=== PATIENT | female | born 1950 | race Caucasian/White ===

== ENCOUNTER 2020-06-11 06:31 | Inpatient (IN) ==
[~2020-06-11 06:31] MED LIST: LORazepam 2 MG/4 ML VIAL ONE
[2020-06-11] MEDS ORDERED: PROPOFOL IV EMULSION 10 MG/ML 100 ML VIAL IV ONE ×2 (06:44→10:49)
[2020-06-11] MEDS ORDERED: SODIUM BICARB 8.4% INJ 50 MEQ/50 ML SYR IV STA (06:47)
[2020-06-11] MEDS ORDERED: CALCIUM GLUCONATE 10% 1,000 MG in SODIUM CHLORIDE 0.9% 50 ML IV STA (06:47)
[2020-06-11] MEDS ORDERED: LORazepam 2 MG/ML VIAL (IM USE) ONE (06:48)
[2020-06-11] MEDS ORDERED: VANCOMYCIN CONSULT ACTIVE PRN ×2 (06:49)
[2020-06-11] MEDS ORDERED: VANCOMYCIN HCL 2,250 MG in SODIUM CHLORIDE 0.9% 500 ML IV ONE (06:49)
[2020-06-11] MEDS ORDERED: CEFEPIME 2,000 MG/20 ML VIAL IV STA (06:49)
[2020-06-11] MEDS ORDERED: SODIUM CHLORIDE 0.9% 1000ML 1,000 ML IV ONE (06:52)
[2020-06-11 06:59] LABS: iSTAT Creatinine 1.5 mg/dl (0.6-1.3); iSTAT Hemoglobin 11.2 g/dl (12.0-16.0); iSTAT Ionized Calcium 0.98 mmol/l (1.12-1.32); iSTAT Potassium 8.8 mmol/L (3.3-5.0)
[2020-06-11 07:04] LABS: iSTAT Creatinine 1.5 mg/dl (0.6-1.3); iSTAT Hemoglobin 13.3 g/dl (12.0-16.0); iSTAT Potassium 4.7 mmol/L (3.3-5.0)
[2020-06-11] MEDS ORDERED: MEROPENEM 500 MG in SYRINGE 0 ML IV STA (07:07)
[2020-06-11 07:10] LABS: iSTAT Arterial Blood Gas HCO3 15 meg/L (19-24); iSTAT Arterial Blood Gas pCO2 40 mmHg (35-46); iSTAT Arterial Blood Gas pH 7.17 (7.35-7.45); iSTAT Arterial Blood Gas pO2 197 mmHg (80-95); iSTAT Carbon Dioxide 16 mmol/L (24-31); iSTAT Hematocrit 38 % (37-47); iSTAT Hemoglobin 12.9 g/dl (12.0-16.0); iSTAT Potassium 4.3 mmol/L (3.3-5.0); iSTAT Sodium 144 mmol/L (135-144)
--- NOTE | 2020-06-11 07:10 | Emergency Department Note ---
History of Present Illness General Chief complaint: Cardiac Assessment Stated complaint: SEIZURE Time Seen by Provider: 06/11/20 06:51 Source: EMS Mode of arrival: EMS Limitations: altered mental status History of Present Illness This patient was brought in by EMS after having a seizure and she was noted to be in V. tach as well. They had a difficult time getting access on route but did manage to get an IV in her right arm. She was apparently shocked once. Upon arrival she went into V. tach and became unresponsive she was shocked she did receive several doses of epi and CPR was started. She was also loaded with amiodarone. She is unable to give any history. Apparently she has an ESBL and was admitted for a UTI also has liver failure. Home Medications Medication Instructions Recorded Confirmed Type Bifidobacterium infantis [Align] 4 mg PO DAILY 06/11/20 06/11/20 History albuterol sulfate 2 puff INHALATION QID PRN 06/11/20 06/11/20 History ascorbic acid (vitamin C) 500 mg PO BID 06/11/20 06/11/20 History benztropine 0.5 mg PO BID 06/11/20 06/11/20 History cariprazine [Vraylar] 3 mg PO QAM 06/11/20 06/11/20 History cetirizine 10 mg PO DAILY 06/11/20 06/11/20 History cholecalciferol (vitamin D3) 25 mcg PO QAM 06/11/20 06/11/20 History [Vitamin D3] citalopram 40 mg PO QAM 06/11/20 06/11/20 History docusate sodium 100 mg PO BID 06/11/20 06/11/20 History famotidine 20 mg PO QAM 06/11/20 06/11/20 History ferrous sulfate 325 mg PO BID 06/11/20 06/11/20 History lactulose 45 ml PO TID 06/11/20 06/11/20 History lamotrigine 150 mg PO BID 06/11/20 06/11/20 History melatonin 3 mg PO HS 06/11/20 06/11/20 History montelukast 10 mg PO QPM 06/11/20 06/11/20 History hwyhkrzr-xck-rqdw-FA-lutein 1 tab PO QAM 06/11/20 06/11/20 History [Centrum Silver Women] nystatin 100,000 unit PO PCHS 06/11/20 06/11/20 History ondansetron 4 mg PO Q6H PRN 06/11/20 06/11/20 History pantoprazole 40 mg PO QAM 06/11/20 06/11/20 History potassium chloride 20 meq PO TID 06/11/20 06/11/20 History rifaximin [Xifaxan] 550 mg PO BID 06/11/20 06/11/20 History selenium 200 mcg PO DAILY 06/11/20 06/11/20 History spironolactone 50 mg PO QAM 06/11/20 06/11/20 History vancomycin 125 mg PO Q6H 06/11/20 06/11/20 History vitamin B complex 1 tab PO DAILY 06/11/20 06/11/20 History zinc sulfate 220 mg PO QAM 06/11/20 06/11/20 History Allergies Allergy/AdvReac Type Severity Reaction Status Date / Time acetaminophen Allergy Hallucinati Verified 06/11/20 07:14 [From Darvocet-N] ng aripiprazole Allergy Unknown Verified 06/11/20 07:12 celecoxib [From Celebrex] Allergy Rash Verified 06/11/20 07:12 ciprofloxacin [From Cipro] Allergy Hives Verified 06/11/20 07:16 clarithromycin [From Biaxin] Allergy Swelling Verified 06/11/20 07:12 of Lip/Tongue/Throat cyclobenzaprine Allergy Muscle Pain Verified 06/11/20 07:16 [From Flexeril] gabapentin Allergy Unknown Verified 06/11/20 07:16 Iodinated Contrast Media Allergy Anaphylaxis Verified 06/11/20 07:14 metaxalone [From Skelaxin] Allergy Difficulty Verified 06/11/20 07:12 Breathing morphine Allergy Hives Verified 06/11/20 07:16 nitrofurantoin Allergy Gastrointestinal Verified 06/11/20 07:16 Upset NSAIDS (Non-Steroidal Allergy Difficulty Verified 06/11/20 07:12 Anti-Inflamma Breathing Penicillins Allergy Anaphylaxis Verified 06/11/20 07:12 propoxyphene Allergy Hallucinati Verified 06/11/20 07:14 [From Darvocet-N] ng shellfish derived Allergy Anaphylaxis Verified 06/11/20 07:12 tetanus immune globulin Allergy Difficulty Verified 06/11/20 07:19 Breathing pregabalin AdvReac Unknown Verified 06/11/20 07:19 Past Med/Surg History Medical History Anemia Bipolar disorder Chronic hepatitis C with cirrhosis Chronic pain syndrome CKD (chronic kidney disease) stage 3, GFR 30-59 ml/min GERD (gastroesophageal reflux disease) History of ESBL Klebsiella pneumoniae infection HTN (hypertension) Portal hypertension T2DM (type 2 diabetes mellitus) Vulvar cancer, carcinoma Surgical History History of bronchoscopy History of cholecystectomy History of hysterectomy Family History Father Bipolar disorder Parkinson disease Mother COPD (chronic obstructive pulmonary disease) Heart disease Social History (Updated 06/11/20 @ 09:57 by Christin Plaaz PA-C) Smoking Status: Unknown if ever smoked Years Smoked: 30; Cigarettes Per Day: 5; Preferred Language: Greek Communication Ability: Unable Communication Ability Comment: intubated [employer] Required: No Beliefs That Will Affect Care: None marital status: Current Living Situation: Other Current Living Situation Comment: unable to obtain Immunizations: Past medical historyESBL, hepatitis C, it looks like she did have a seizure and an MRI when she was in [place] recently. End-stage liver disease Review of Systems Unobtainable due to mental health condition and Unobtainable due to reduced consciousness Physical Exam Vital Signs Vital Signs - 24 hr 06/11/20 06:33 06/11/20 06:47 06/11/20 06:49 Temperature Temperature Source Pulse Rate 142 H 47 L 47 L Pulse Rate [Apical] Pulse Rate from SpO2 Sensor 47 L Pulse Rhythm Irregular Pulse Rhythm [Apical] Pulse Strength [Apical] Respiratory Rate 0 L 37 H 15 Respiratory Effort / Characteristics Respiratory Depth Respiratory Pattern Blood Pressure 96/37 L Blood Pressure [Right Arm] Blood Pressure Mean 51 Blood Pressure Mean [Right Arm] Blood Pressure Position [Right Arm] Pulse Oximetry 52 L 99 98 Oxygen Delivery Method Fraction of Inspired Oxygen 40 SaO2/FiO2 Ratio Sepsis Recent Fever Within 48 Hours No Sepsis New/Unexplained Change in Mental Status Yes Sepsis Action Taken by Nursing No Action Required End-Tidal CO2 End Tidal CO2 (18-54mmHg) 06/11/20 06:50 06/11/20 06:55 06/11/20 07:00 Temperature Temperature Source Pulse Rate 53 L 54 L Pulse Rate [Apical] 65 58 L Pulse Rate from SpO2 Sensor 51 L 49 L Pulse Rhythm Pulse Rhythm [Apical] Regular Regular Pulse Strength [Apical] Normal Normal Respiratory Rate 24 23 26 H Respiratory Effort / Characteristics Non-Labored Mechanically Ventilated Non-Labored Mechanically Ventilated Respiratory Depth Normal Normal Respiratory Pattern Regular Regular Blood Pressure 124/64 139/53 L Blood Pressure [Right Arm] 124/64 140/54 L Blood Pressure Mean 90 83 Blood Pressure Mean [Right Arm] 84 82 Blood Pressure Position [Right Arm] Lying Lying Pulse Oximetry 97 95 95 Oxygen Delivery Method Mechanical Vent Mechanical Vent Fraction of Inspired Oxygen 30 30 SaO2/FiO2 Ratio 323 316 Sepsis Recent Fever Within 48 Hours Sepsis New/Unexplained Change in Mental Status Sepsis Action Taken by Nursing End-Tidal CO2 End Tidal CO2 (18-54mmHg) 27 24 06/11/20 07:10 06/11/20 07:21 06/11/20 07:23 Temperature Temperature Source Pulse Rate 110 H Pulse Rate [Apical] 71 111 H Pulse Rate from SpO2 Sensor Pulse Rhythm Pulse Rhythm [Apical] Regular Regular Pulse Strength [Apical] Normal Normal Respiratory Rate 26 H 32 H Respiratory Effort / Characteristics Non-Labored Mechanically Ventilated Non-Labored Mechanically Ventilated Respiratory Depth Normal Normal Respiratory Pattern Regular Regular Blood Pressure Blood Pressure [Right Arm] 150/80 H 163/72 H Blood Pressure Mean Blood Pressure Mean [Right Arm] 103 102 Blood Pressure Position [Right Arm] Lying Lying Pulse Oximetry 96 96 95 Oxygen Delivery Method Mechanical Vent Mechanical Vent Fraction of Inspired Oxygen 30 30 30 SaO2/FiO2 Ratio 320 320 Sepsis Recent Fever Within 48 Hours Sepsis New/Unexplained Change in Mental Status Sepsis Action Taken by Nursing End-Tidal CO2 35 End Tidal CO2 (18-54mmHg) 26 25 06/11/20 07:30 06/11/20 08:00 06/11/20 08:10 Temperature Temperature Source Pulse Rate Pulse Rate [Apical] 110 H 85 95 H Pulse Rate from SpO2 Sensor Pulse Rhythm Pulse Rhythm [Apical] Regular Regular Regular Pulse Strength [Apical] Normal Normal Normal Respiratory Rate 34 H 28 H 30 H Respiratory Effort / Characteristics Non-Labored Mechanically Ventilated Non-Labored Mechanically Ventilated Non-Labored Mechanically Ventilated Respiratory Depth Normal Normal Normal Respiratory Pattern Regular Regular Regular Blood Pressure Blood Pressure [Right Arm] 154/76 H 110/57 L 135/58 L Blood Pressure Mean Blood Pressure Mean [Right Arm] 102 74 83 Blood Pressure Position [Right Arm] Lying Lying Lying Pulse Oximetry 95 93 93 Oxygen Delivery Method Mechanical Vent Mechanical Vent Mechanical Vent Fraction of Inspired Oxygen 30 30 30 SaO2/FiO2 Ratio 316 310 310 Sepsis Recent Fever Within 48 Hours Sepsis New/Unexplained Change in Mental Status Sepsis Action Taken by Nursing End-Tidal CO2 End Tidal CO2 (18-54mmHg) 26 26 25 06/11/20 08:11 06/11/20 08:20 06/11/20 08:30 Temperature 38.4 C H Temperature Source Rectal Pulse Rate Pulse Rate [Apical] 93 H 91 H Pulse Rate from SpO2 Sensor Pulse Rhythm Pulse Rhythm [Apical] Regular Regular Pulse Strength [Apical] Normal Normal Respiratory Rate 30 H 30 H Respiratory Effort / Characteristics Non-Labored Mechanically Ventilated Non-Labored Mechanically Ventilated Respiratory Depth Normal Normal Respiratory Pattern Regular Regular Blood Pressure Blood Pressure [Right Arm] 124/60 130/56 L Blood Pressure Mean Blood Pressure Mean [Right Arm] 81 80 Blood Pressure Position [Right Arm] Lying Lying Pulse Oximetry 92 93 Oxygen Delivery Method Mechanical Vent Mechanical Vent Fraction of Inspired Oxygen 30 30 SaO2/FiO2 Ratio 306 310 Sepsis Recent Fever Within 48 Hours Sepsis New/Unexplained Change in Mental Status Sepsis Action Taken by Nursing End-Tidal CO2 End Tidal CO2 (18-54mmHg) 27 28 06/11/20 08:40 06/11/20 08:50 06/11/20 09:10 Temperature Temperature Source Pulse Rate Pulse Rate [Apical] 89 87 85 Pulse Rate from SpO2 Sensor Pulse Rhythm Pulse Rhythm [Apical] Regular Regular Regular Pulse Strength [Apical] Normal Normal Normal Respiratory Rate 28 H 28 H 28 H Respiratory Effort / Characteristics Non-Labored Mechanically Ventilated Non-Labored Mechanically Ventilated Non-Labored Spontaneous Respiratory Depth Normal Normal Normal Respiratory Pattern Regular Regular Regular Blood Pressure Blood Pressure [Right Arm] 125/54 L 116/55 L 113/50 L Blood Pressure Mean Blood Pressure Mean [Right Arm] 77 75 71 Blood Pressure Position [Right Arm] Lying Lying Lying Pulse Oximetry 92 92 92 Oxygen Delivery Method Mechanical Vent Mechanical Vent Mechanical Vent Fraction of Inspired Oxygen 30 30 30 SaO2/FiO2 Ratio 306 306 306 Sepsis Recent Fever Within 48 Hours Sepsis New/Unexplained Change in Mental Status Sepsis Action Taken by Nursing End-Tidal CO2 End Tidal CO2 (18-54mmHg) 25 25 26 11/23/20 09:22 06/11/20 09:52 06/11/20 10:07 Temperature Temperature Source Pulse Rate Pulse Rate [Apical] 84 79 79 Pulse Rate from SpO2 Sensor Pulse Rhythm Pulse Rhythm [Apical] Regular Regular Regular Pulse Strength [Apical] Normal Normal Normal Respiratory Rate 26 H 28 H 26 H Respiratory Effort / Characteristics Non-Labored Mechanically Ventilated Non-Labored Mechanically Ventilated Non-Labored Mechanically Ventilated Respiratory Depth Normal Normal Normal Respiratory Pattern Regular Regular Regular Blood Pressure Blood Pressure [Right Arm] 113/49 L 96/46 L 99/49 L Blood Pressure Mean Blood Pressure Mean [Right Arm] 70 62 65 Blood Pressure Position [Right Arm] Lying Lying Lying Pulse Oximetry 94 93 93 Oxygen Delivery Method Mechanical Vent Mechanical Vent Mechanical Vent Fraction of Inspired Oxygen 30 30 SaO2/FiO2 Ratio 310 310 Sepsis Recent Fever Within 48 Hours Sepsis New/Unexplained Change in Mental Status Sepsis Action Taken by Nursing End-Tidal CO2 End Tidal CO2 (18-54mmHg) 26 25 24 06/11/20 10:22 06/11/20 10:24 Temperature 37.4 C 37.4 C Temperature Source Rectal Rectal Pulse Rate Pulse Rate [Apical] 78 Pulse Rate from SpO2 Sensor Pulse Rhythm Pulse Rhythm [Apical] Regular Pulse Strength [Apical] Normal Respiratory Rate 26 H Respiratory Effort / Characteristics Non-Labored Mechanically Ventilated Respiratory Depth Normal Respiratory Pattern Regular Blood Pressure Blood Pressure [Right Arm] 97/52 L Blood Pressure Mean Blood Pressure Mean [Right Arm] 67 Blood Pressure Position [Right Arm] Lying Pulse Oximetry 93 Oxygen Delivery Method Mechanical Vent Fraction of Inspired Oxygen 30 SaO2/FiO2 Ratio 310 Sepsis Recent Fever Within 48 Hours Sepsis New/Unexplained Change in Mental Status Sepsis Action Taken by Nursing End-Tidal CO2 End Tidal CO2 (18-54mmHg) 24 General: Well developed well nourished unresponsive older female in no acute distress, shallow respirations on room air. Nonverbal HEENT: Normal cephalic atraumatic. Pupils are equal round and reactive to li ght. Extraocular movements are intact. Oropharynx is pink with moist mucous membranes. No swelling of the mouth lips or tongue. Neck: Supple with a midline trachea. No meningeal signs or stiffness, no JVD or bruits. No Stridor. Chest: Clear to auscultation bilaterally. No wheezes or rhonchi. No increased work of breathing. Heart: Regular rate and rhythm without murmurs or gallops. Abdomen: Soft nontender, nondistended without rebound guarding or rigidity. Extremities: No cyanosis clubbing or edema. No calf tenderness or assymetry Spine/Back. Non tender to palpation. No CVA tenderness Skin: Good turgor without rashes. Neurologic exam: Nonverbal, possible seizure activity she is moving both her arms and legs but not to command Procedures Free Text Procedures Endotracheal intubation: Indicationcardiac arrest, V. tach, altered mental status The patient was intubated on the first attempt with an 8.0 endotracheal tube. I used the glide scope. The cords were directly visualized and the tube was easily passed without any trauma on the first attempt. She had breath sounds bilaterally when I listened. She also had positive color change. Chest x-ray confirms placement as well. The patient tolerated the procedure well without difficulty or complication. She did receive 30 mg of etomidate for sedation prior. There was concern for possible elevated potassium so we did not give her any succinylcholine and this was held. Course Administered Medications Discontinued Medications Acetaminophen (Acetaminophen 650 Mg Supp) 650 mg VT NOW STA Stop: 06/11/20 08:13 Last Admin: 06/11/20 08:27 Dose: 650 mg Documented by: [id number] Levetiracetam 2,000 mg/ Sodium (Chloride) 270 mls @ 1,080 mls/hr IV NOW ONE Stop: 06/11/20 06:59 Last Infusion: 06/11/20 07:08 Dose: 0 mls/hr Documented by: [id number] Admin: 06/11/20 06:53 Dose: 1,080 mls/hr Documented by: [id number] Calcium Gluconate 1,000 mg/ (Sodium Chloride) 60 mls @ 240 mls/hr IV NOW STA Stop: 06/11/20 07:01 Last Admin: 06/11/20 07:12 Dose: Not Given Documented by: [id number] Vancomycin HCl 2,250 mg/ (Sodium Chloride) 545 mls @ 200 mls/hr IV NOW ONE Stop: 06/11/20 09:32 Last Infusion: 06/11/20 13:07 Dose: 0 mls/hr Documented by: [id number] Admin: 06/11/20 07:11 Dose: 200 mls/hr Documented by: [id number] Sodium Chloride (Nss 1000ml) 1,000 mls @ 999 mls/hr IV .Q1H1M ONE Stop: 06/11/20 07:52 Last Infusion: 06/11/20 07:54 Dose: 0 mls/hr Documented by: [id number] Admin: 06/11/20 06:54 Dose: 999 mls/hr Documented by: [id number] Meropenem 500 mg/ Syringe 10 mls @ 2 mls/min IV NOW STA; Protocol Stop: 06/11/20 07:11 Last Admin: 06/11/20 08:22 Dose: 2 mls/min Documented by: [id number] Amiodarone HCl/Dextrose (Nexterone / D5w) 360 mg in 200 mls @ 33.3 mls/hr IV .Q6H1M MURTAZA Stop: 06/11/20 13:30 Last Infusion: 06/11/20 13:07 Dose: 0 mls/hr Documented by: [id number] Cosigned by: [id number] Admin: 06/11/20 08:30 Dose: 33.3 mls/hr Documented by: [id number] Cosigned by: [id number] Lorazepam (Lorazepam 2 Mg/4 Ml Vial) Confirm Administered Dose 10 mg .ROUTE .STK-MED ONE Stop: 06/11/20 06:32 Last Admin: 06/11/20 06:56 Dose: Not Given Documented by: [id number] Lorazepam (Lorazepam 2 Mg/Ml Vial (Im Use)) Confirm Administered Dose 4 mg .ROUTE .STK-MED ONE Stop: 06/11/20 06:49 Last Admin: 06/11/20 14:28 Dose: Not Given Documented by: [id number] Propofol (Propofol Iv Emulsion 10 Mg/Ml 100 Ml Vial) Confirm Administered Dose 1,000 mg IV .STK-MED ONE Stop: 06/11/20 06:45 Last Admin: 06/11/20 07:00 Dose: 1,000 mg Documented by: [id number] Cosigned by: [id number] Propofol (Propofol Iv Emulsion 10 Mg/Ml 100 Ml Vial) Confirm Administered Dose 1,000 mg IV .STK-MED ONE Stop: 06/11/20 10:50 Last Admin: 06/11/20 14:28 Dose: Not Given Documented by: [id number] Sodium Bicarbonate (Sodium Bicarb 8.4% Inj 50 Meq/50 Ml Syr) 50 meq IV NOW STA Stop: 06/11/20 06:48 Last Admin: 06/11/20 06:53 Dose: 50 meq Documented by: [id number] Critical Care Time Critical Care Time: Yes Total Critical Care Time: 130 Due to the patient's critical illness, need for multiple IV medications, intubation, frequent reassessment and evaluation as well as ultimately talking to 8 different providers (here, Brittany and Sondra) about her as well as her brother multiple times, I have personally spent greater than 130 minutes of critical care time in the direct management of this patient. This includes bedside care, interpretation of diagnostic studies, and testing, discussion with consultants, patient, and family members, and other required patient management activities. This 30 minutes is in excess of all separately billable procedures. Medical Decision Making Differential Diagnosis Arrhythmia, V. tach, seizures, electrolyte or metabolic abnormality, sepsis, infection, UTI Medical Records Attestation: I reviewed the patient's medical records. Home Medications Current Medication List: was personally reviewed by me Laboratory Data Attestation: I reviewed the patient's lab results. Result diagrams: 06/11/20 06:55 06/11/20 11:01 Lab Results 06/11/20 06/11/20 06/11/20 Range/Units 06:44 06:50 06:54 WBC (4.8-10.8) K/uL RBC (4.2-5.4) M/uL Hgb (12.0-16.0) g/dL POC Hgb 11.2 L 13.3 (12.0-16.0) g/dl Hct (37-47) % POC Hct 33 L 39 (37-47) % MCV (80-100) fL MCH (25-34) pg MCHC (32-36) g/dL RDW Std Deviation (36.4-46.3) fL RDW Coeff of Carole (11.5-14.5) % Plt Count (130-400) K/uL MPV (7.4-10.4) fL Immature Gran % (Auto) % Neut % (Auto) % Lymph % (Auto) % [place] % (Auto) % Eos % (Auto) % Baso % (Auto) % Neut # (Auto) (1.4-6.5) K/uL Lymph # (Auto) (1.2-3.4) K/uL [place] # (Auto) (0.11-0.59) K/uL Eos # (Auto) (0-0.5) K/uL Baso # (Auto) (0-0.2) K/uL Immature Gran # (Auto) (0.00-0.02) K/uL Absolute Nucleated RBC (0-0) K/uL Nucleated RBC % (auto) % Blood Smear Review PT (9.0-12.0) Seconds INR (0.9-1.1) POC pH (7.35-7.45) POC pCO2 (35-46) mmHg POC pO2 (80-95) mmHg POC HCO3 (19-24) monique/L POC Base Excess (-9-1.8) monique/L POC ABG O2 Sat (90-95) % POC Sodium 141 145 H (135-144) mmol/L Sodium (136-145) mmol/L POC Potassium 8.8 H* 4.7 (3.3-5.0) mmol/L Potassium (3.5-5.1) mmol/L POC Chloride 114 H 111 (101-112) mmol/L Chloride (98-107) mmol/L Carbon Dioxide (21-32) mmol/L POC Total CO2 14 L 15 L (24-31) mmol/L Anion Gap (3-11) POC Anion Gap 22.0 25.0 (16-25) mmol/L POC BUN 10 9 (7-18) mg/dl BUN (7-18) mg/dl Creatinine (0.6-1.2) mg/dl POC Creatinine 1.5 H 1.5 H (0.6-1.3) mg/dl Est Cr Clr Drug Dosing Est GFR ( Amer) Est GFR (Non-Af Amer) BUN/Creatinine Ratio (10-20) Glucose (70-99) mg/dl POC Glucose (other) 134 H 138 H (70-99) mg/dl Lactate (0.4-2.0) mmol/L Calcium (8.5-10.1) mg/dl POC Ioniz Calcium Roni 0.98 L 1.00 L (1.12-1.32) mmol/l Magnesium (1.8-2.4) mg/dl Total Bilirubin (0.2-1) mg/dl AST (15-37) U/L ALT (12-78) U/L Alkaline Phosphatase (45-117) U/L Ammonia Troponin I (0-0.045) ng/ml NT-Pro-B Natriuret Pep (0-900) pg/ml Total Protein (6.4-8.2) gm/dl Albumin (3.4-5.0) gm/dl Globulin (2.5-4.0) gm/dl Albumin/Globulin Ratio (0.9-2) Lipase (73-393) U/L Procalcitonin (0-0.5) ng/ml TSH (0.300-4.500) uIu/ml Free T4 (0.8-1.6) ng/dl Specimen Hemolysis Urine Color Urine Appearance (Clear) Urine pH (4.5-7.5) Ur Specific [place] (1.000-1.030) Urine Protein (Negative) Urine Glucose (UA) (Negative) Urine Ketones (Negative) Urine Blood (Negative) Urine Nitrite (Negative) Urine Bilirubin (Negative) Urine Urobilinogen (Negative) Ur Leukocyte Esterase (Negative) Urine WBC (Auto) (0-5) /hpf Urine RBC (Auto) (0-4) /hpf U Hyaline Cast (Auto) (0-5) /lpf U Epithel Cells (Auto) (0-5) /lpf Urine Bacteria (Auto) (Negative) Urine Yeast Salicylates Urine Opiates Screen (Neg) Ur Methadone, Qual (Neg) Acetaminophen Urine Barbiturates (Neg) Ur Phencyclidine (PCP) (Neg) U Amphetamin/Meth Scrn (Neg) MDMA (Ecstasy) Screen (Neg) U Benzodiazepines Scrn (Neg) Ur Cocaine Metabolite (Neg) U Marijuana (THC) Screen (Neg) Adenovirus (PCR) (NotDetected) B. pertussis DNA (PCR) (NotDetected) B.parapertussis DNA PCR (NotDetected) C. pneumoniae DNA (PCR) (NotDetected) Coronavirus OC43 (PCR) (NotDetected) Coronavirus HKU1 (PCR) (NotDetected) Coronavirus 229E (PCR) (NotDetected) COVID-19 Eval Order Covid19 IDNow atMMTC COVID-19 PCR (NotDetected) Coronavirus NL63 (PCR) (NotDetected) Human Metapneumovir PCR (NotDetected) Influenza Type A (PCR) (NotDetected) Influenza Type B (PCR) (NotDetected) M. pneumoniae (PCR) (NotDetected) Parainfluenza 1 (PCR) (NotDetected) Parainfluenza 2 (PCR) (NotDetected) Parainfluenza 3 (PCR) (NotDetected) Parainfluenza 4 (PCR) (NotDetected) RSV (PCR) (NotDetected) Entero/Rhino (PCR) (NotDetected) SARS-CoV-2, RNA, NAAT (NEGATIVE) 06/11/20 06/11/20 06/11/20 Range/Units 06:54 06:54 06:55 WBC 20.79 H D (4.8-10.8) K/uL RBC 3.73 L (4.2-5.4) M/uL Hgb 12.7 (12.0-16.0) g/dL POC Hgb 12.9 (12.0-16.0) g/dl Hct 39.1 (37-47) % POC Hct 38 (37-47) % MCV 104.8 H (80-100) fL MCH 34.0 (25-34) pg MCHC 32.5 (32-36) g/dL RDW Std Deviation 56.9 H (36.4-46.3) fL RDW Coeff of Carole 15.0 H (11.5-14.5) % Plt Count 159 D (130-400) K/uL MPV 11.9 H (7.4-10.4) fL Immature Gran % (Auto) 3.3 % Neut % (Auto) 47.6 % Lymph % (Auto) 42.6 % [place] % (Auto) 4.3 % Eos % (Auto) 1.9 % Baso % (Auto) 0.3 % Neut # (Auto) 9.91 H (1.4-6.5) K/uL Lymph # (Auto) 8.85 H (1.2-3.4) K/uL [place] # (Auto) 0.89 H (0.11-0.59) K/uL Eos # (Auto) 0.39 (0-0.5) K/uL Baso # (Auto) 0.07 (0-0.2) K/uL Immature Gran # (Auto) 0.68 H (0.00-0.02) K/uL Absolute Nucleated RBC 0.22 H (0-0) K/uL Nucleated RBC % (auto) 1.1 % Blood Smear Review PT (9.0-12.0) Seconds INR (0.9-1.1) POC pH 7.17 L* (7.35-7.45) POC pCO2 40 (35-46) mmHg POC pO2 197 H (80-95) mmHg POC HCO3 15 L (19-24) monique/L POC Base Excess -14.0 L (-9-1.8) monique/L POC ABG O2 Sat 99.0 H (90-95) % POC Sodium 144 (135-144) mmol/L Sodium (136-145) mmol/L POC Potassium 4.3 (3.3-5.0) mmol/L Potassium (3.5-5.1) mmol/L POC Chloride (101-112) mmol/L Chloride (98-107) mmol/L Carbon Dioxide (21-32) mmol/L POC Total CO2 16 L (24-31) mmol/L Anion Gap (3-11) POC Anion Gap (16-25) mmol/L POC BUN (7-18) mg/dl BUN (7-18) mg/dl Creatinine (0.6-1.2) mg/dl POC Creatinine (0.6-1.3) mg/dl Est Cr Clr Drug Dosing Est GFR ( Amer) Est GFR (Non-Af Amer) BUN/Creatinine Ratio (10-20) Glucose (70-99) mg/dl POC Glucose (other) (70-99) mg/dl Lactate (0.4-2.0) mmol/L Calcium (8.5-10.1) mg/dl POC Ioniz Calcium Roni (1.12-1.32) mmol/l Magnesium (1.8-2.4) mg/dl Total Bilirubin (0.2-1) mg/dl AST (15-37) U/L ALT (12-78) U/L Alkaline Phosphatase (45-117) U/L Ammonia Troponin I (0-0.045) ng/ml NT-Pro-B Natriuret Pep (0-900) pg/ml Total Protein (6.4-8.2) gm/dl Albumin (3.4-5.0) gm/dl Globulin (2.5-4.0) gm/dl Albumin/Globulin Ratio (0.9-2) Lipase (73-393) U/L Procalcitonin (0-0.5) ng/ml TSH (0.300-4.500) uIu/ml Free T4 (0.8-1.6) ng/dl Specimen Hemolysis Urine Color Urine Appearance (Clear) Urine pH (4.5-7.5) Ur Specific [place] (1.000-1.030) Urine Protein (Negative) Urine Glucose (UA) (Negative) Urine Ketones (Negative) Urine Blood (Negative) Urine Nitrite (Negative) Urine Bilirubin (Negative) Urine Urobilinogen (Negative) Ur Leukocyte Esterase (Negative) Urine WBC (Auto) (0-5) /hpf Urine RBC (Auto) (0-4) /hpf U Hyaline Cast (Auto) (0-5) /lpf U Epithel Cells (Auto) (0-5) /lpf Urine Bacteria (Auto) (Negative) Urine Yeast Salicylates Urine Opiates Screen (Neg) Ur Methadone, Qual (Neg) Acetaminophen Urine Barbiturates (Neg) Ur Phencyclidine (PCP) (Neg) U Amphetamin/Meth Scrn (Neg) MDMA (Ecstasy) Screen (Neg) U Benzodiazepines Scrn (Neg) Ur Cocaine Metabolite (Neg) U Marijuana (THC) Screen (Neg) Adenovirus (PCR) (NotDetected) B. pertussis DNA (PCR) (NotDetected) B.parapertussis DNA PCR (NotDetected) C. pneumoniae DNA (PCR) (NotDetected) Coronavirus OC43 (PCR) (NotDetected) Coronavirus HKU1 (PCR) (NotDetected) Coronavirus 229E (PCR) (NotDetected) COVID-19 Eval Order COVID-19 PCR (NotDetected) Coronavirus NL63 (PCR) (NotDetected) Human Metapneumovir PCR (NotDetected) Influenza Type A (PCR) (NotDetected) Influenza Type B (PCR) (NotDetected) M. pneumoniae (PCR) (NotDetected) Parainfluenza 1 (PCR) (NotDetected) Parainfluenza 2 (PCR) (NotDetected) Parainfluenza 3 (PCR) (NotDetected) Parainfluenza 4 (PCR) (NotDetected) RSV (PCR) (NotDetected) Entero/Rhino (PCR) (NotDetected) SARS-CoV-2, RNA, NAAT NEGATIVE (NEGATIVE) 06/11/20 06/11/20 06/11/20 Range/Units 06:55 06:55 06:55 WBC (4.8-10.8) K/uL RBC (4.2-5.4) M/uL Hgb (12.0-16.0) g/dL POC Hgb (12.0-16.0) g/dl Hct (37-47) % POC Hct (37-47) % MCV (80-100) fL MCH (25-34) pg MCHC (32-36) g/dL RDW Std Deviation (36.4-46.3) fL RDW Coeff of Carole (11.5-14.5) % Plt Count (130-400) K/uL MPV (7.4-10.4) fL Immature Gran % (Auto) % Neut % (Auto) % Lymph % (Auto) % [place] % (Auto) % Eos % (Auto) % Baso % (Auto) % Neut # (Auto) (1.4-6.5) K/uL Lymph # (Auto) (1.2-3.4) K/uL [place] # (Auto) (0.11-0.59) K/uL Eos # (Auto) (0-0.5) K/uL Baso # (Auto) (0-0.2) K/uL Immature Gran # (Auto) (0.00-0.02) K/uL Absolute Nucleated RBC (0-0) K/uL Nucleated RBC % (auto) % Blood Smear Review PT 15.4 H (9.0-12.0) Seconds INR 1.5 H (0.9-1.1) POC pH (7.35-7.45) POC pCO2 (35-46) mmHg POC pO2 (80-95) mmHg POC HCO3 (19-24) monique/L POC Base Excess (-9-1.8) monique/L POC ABG O2 Sat (90-95) % POC Sodium (135-144) mmol/L Sodium 146 H D (136-145) mmol/L POC Potassium (3.3-5.0) mmol/L Potassium 4.5 (3.5-5.1) mmol/L POC Chloride (101-112) mmol/L Chloride 112 H (98-107) mmol/L Carbon Dioxide 15 L (21-32) mmol/L POC Total CO2 (24-31) mmol/L Anion Gap 19.0 H (3-11) POC Anion Gap (16-25) mmol/L POC BUN (7-18) mg/dl BUN 9 (7-18) mg/dl Creatinine 1.86 H D (0.6-1.2) mg/dl POC Creatinine (0.6-1.3) mg/dl Est Cr Clr Drug Dosing Not Reportable Est GFR ( Amer) 31.2 Est GFR (Non-Af Amer) 26.9 BUN/Creatinine Ratio 4.6 L (10-20) Glucose 152 H (70-99) mg/dl POC Glucose (other) (70-99) mg/dl Lactate 14.4 H* (0.4-2.0) mmol/L Calcium 8.3 L (8.5-10.1) mg/dl POC Ioniz Calcium Roni (1.12-1.32) mmol/l Magnesium 2.2 (1.8-2.4) mg/dl Total Bilirubin 1.6 H (0.2-1) mg/dl AST 85 H (15-37) U/L ALT 68 (12-78) U/L Alkaline Phosphatase 169 H (45-117) U/L Ammonia Troponin I 1.810 H* (0-0.045) ng/ml NT-Pro-B Natriuret Pep 1847 H (0-900) pg/ml Total Protein 6.1 L (6.4-8.2) gm/dl Albumin 2.8 L (3.4-5.0) gm/dl Globulin 3.3 (2.5-4.0) gm/dl Albumin/Globulin Ratio 0.8 L (0.9-2) Lipase 91 (73-393) U/L Procalcitonin (0-0.5) ng/ml TSH 8.100 H (0.300-4.500) uIu/ml Free T4 1.15 (0.8-1.6) ng/dl Specimen Hemolysis Urine Color Urine Appearance (Clear) Urine pH (4.5-7.5) Ur Specific [place] (1.000-1.030) Urine Protein (Negative) Urine Glucose (UA) (Negative) Urine Ketones (Negative) Urine Blood (Negative) Urine Nitrite (Negative) Urine Bilirubin (Negative) Urine Urobilinogen (Negative) Ur Leukocyte Esterase (Negative) Urine WBC (Auto) (0-5) /hpf Urine RBC (Auto) (0-4) /hpf U Hyaline Cast (Auto) (0-5) /lpf U Epithel Cells (Auto) (0-5) /lpf Urine Bacteria (Auto) (Negative) Urine Yeast Salicylates Urine Opiates Screen (Neg) Ur Methadone, Qual (Neg) Acetaminophen Urine Barbiturates (Neg) Ur Phencyclidine (PCP) (Neg) U Amphetamin/Meth Scrn (Neg) MDMA (Ecstasy) Screen (Neg) U Benzodiazepines Scrn (Neg) Ur Cocaine Metabolite (Neg) U Marijuana (THC) Screen (Neg) Adenovirus (PCR) (NotDetected) B. pertussis DNA (PCR) (NotDetected) B.parapertussis DNA PCR (NotDetected) C. pneumoniae DNA (PCR) (NotDetected) Coronavirus OC43 (PCR) (NotDetected) Coronavirus HKU1 (PCR) (NotDetected) Coronavirus 229E (PCR) (NotDetected) COVID-19 Eval Order COVID-19 PCR (NotDetected) Coronavirus NL63 (PCR) (NotDetected) Human Metapneumovir PCR (NotDetected) Influenza Type A (PCR) (NotDetected) Influenza Type B (PCR) (NotDetected) M. pneumoniae (PCR) (NotDetected) Parainfluenza 1 (PCR) (NotDetected) Parainfluenza 2 (PCR) (NotDetected) Parainfluenza 3 (PCR) (NotDetected) Parainfluenza 4 (PCR) (NotDetected) RSV (PCR) (NotDetected) Entero/Rhino (PCR) (NotDetected) SARS-CoV-2, RNA, NAAT (NEGATIVE) 06/11/20 06/11/20 06/11/20 Range/Units 06:55 06:55 07:00 WBC (4.8-10.8) K/uL RBC (4.2-5.4) M/uL Hgb (12.0-16.0) g/dL POC Hgb (12.0-16.0) g/dl Hct (37-47) % POC Hct (37-47) % MCV (80-100) fL MCH (25-34) pg MCHC (32-36) g/dL RDW Std Deviation (36.4-46.3) fL RDW Coeff of Carole (11.5-14.5) % Plt Count (130-400) K/uL MPV (7.4-10.4) fL Immature Gran % (Auto) % Neut % (Auto) % Lymph % (Auto) % [place] % (Auto) % Eos % (Auto) % Baso % (Auto) % Neut # (Auto) (1.4-6.5) K/uL Lymph # (Auto) (1.2-3.4) K/uL [place] # (Auto) (0.11-0.59) K/uL Eos # (Auto) (0-0.5) K/uL Baso # (Auto) (0-0.2) K/uL Immature Gran # (Auto) (0.00-0.02) K/uL Absolute Nucleated RBC (0-0) K/uL Nucleated RBC % (auto) % Blood Smear Review PT (9.0-12.0) Seconds INR (0.9-1.1) POC pH (7.35-7.45) POC pCO2 (35-46) mmHg POC pO2 (80-95) mmHg POC HCO3 (19-24) monique/L POC Base Excess (-9-1.8) monique/L POC ABG O2 Sat (90-95) % POC Sodium (135-144) mmol/L Sodium (136-145) mmol/L POC Potassium (3.3-5.0) mmol/L Potassium (3.5-5.1) mmol/L POC Chloride (101-112) mmol/L Chloride (98-107) mmol/L Carbon Dioxide (21-32) mmol/L POC Total CO2 (24-31) mmol/L Anion Gap (3-11) POC Anion Gap (16-25) mmol/L POC BUN (7-18) mg/dl BUN (7-18) mg/dl Creatinine (0.6-1.2) mg/dl POC Creatinine (0.6-1.3) mg/dl Est Cr Clr Drug Dosing Est GFR ( Amer) Est GFR (Non-Af Amer) BUN/Creatinine Ratio (10-20) Glucose (70-99) mg/dl POC Glucose (other) (70-99) mg/dl Lactate (0.4-2.0) mmol/L Calcium (8.5-10.1) mg/dl POC Ioniz Calcium Roni (1.12-1.32) mmol/l Magnesium (1.8-2.4) mg/dl Total Bilirubin (0.2-1) mg/dl AST (15-37) U/L ALT (12-78) U/L Alkaline Phosphatase (45-117) U/L Ammonia Cancelled Troponin I (0-0.045) ng/ml NT-Pro-B Natriuret Pep (0-900) pg/ml Total Protein (6.4-8.2) gm/dl Albumin (3.4-5.0) gm/dl Globulin (2.5-4.0) gm/dl Albumin/Globulin Ratio (0.9-2) Lipase (73-393) U/L Procalcitonin 0.11 (0-0.5) ng/ml TSH (0.300-4.500) uIu/ml Free T4 (0.8-1.6) ng/dl Specimen Hemolysis Urine Color Dark Yellow Urine Appearance Turbid A (Clear) Urine pH 5.0 (4.5-7.5) Ur Specific [place] 1.024 (1.000-1.030) Urine Protein 1+ H (Negative) Urine Glucose (UA) Negative (Negative) Urine Ketones Trace H (Negative) Urine Blood 2+ H (Negative) Urine Nitrite Positive A (Negative) Urine Bilirubin Negative (Negative) Urine Urobilinogen Negative (Negative) Ur Leukocyte Esterase 2+ H (Negative) Urine WBC (Auto) >30 H (0-5) /hpf Urine RBC (Auto) 5-10 H (0-4) /hpf U Hyaline Cast (Auto) 0 (0-5) /lpf U Epithel Cells (Auto) >30 H (0-5) /lpf Urine Bacteria (Auto) 4+ H (Negative) Urine Yeast Not Reportable Salicylates Urine Opiates Screen (Neg) Ur Methadone, Qual (Neg) Acetaminophen Urine Barbiturates (Neg) Ur Phencyclidine (PCP) (Neg) U Amphetamin/Meth Scrn (Neg) MDMA (Ecstasy) Screen (Neg) U Benzodiazepines Scrn (Neg) Ur Cocaine Metabolite (Neg) U Marijuana (THC) Screen (Neg) Adenovirus (PCR) (NotDetected) B. pertussis DNA (PCR) (NotDetected) B.parapertussis DNA PCR (NotDetected) C. pneumoniae DNA (PCR) (NotDetected) Coronavirus OC43 (PCR) (NotDetected) Coronavirus HKU1 (PCR) (NotDetected) Coronavirus 229E (PCR) (NotDetected) COVID-19 Eval Order COVID-19 PCR (NotDetected) Coronavirus NL63 (PCR) (NotDetected) Human Metapneumovir PCR (NotDetected) Influenza Type A (PCR) (NotDetected) Influenza Type B (PCR) (NotDetected) M. pneumoniae (PCR) (NotDetected) Parainfluenza 1 (PCR) (NotDetected) Parainfluenza 2 (PCR) (NotDetected) Parainfluenza 3 (PCR) (NotDetected) Parainfluenza 4 (PCR) (NotDetected) RSV (PCR) (NotDetected) Entero/Rhino (PCR) (NotDetected) SARS-CoV-2, RNA, NAAT (NEGATIVE) 06/11/20 06/11/20 06/11/20 Range/Units 07:00 07:34 08:45 WBC (4.8-10.8) K/uL RBC (4.2-5.4) M/uL Hgb (12.0-16.0) g/dL POC Hgb (12.0-16.0) g/dl Hct (37-47) % POC Hct (37-47) % MCV (80-100) fL MCH (25-34) pg MCHC (32-36) g/dL RDW Std Deviation (36.4-46.3) fL RDW Coeff of Carole (11.5-14.5) % Plt Count (130-400) K/uL MPV (7.4-10.4) fL Immature Gran % (Auto) % Neut % (Auto) % Lymph % (Auto) % [place] % (Auto) % Eos % (Auto) % Baso % (Auto) % Neut # (Auto) (1.4-6.5) K/uL Lymph # (Auto) (1.2-3.4) K/uL [place] # (Auto) (0.11-0.59) K/uL Eos # (Auto) (0-0.5) K/uL Baso # (Auto) (0-0.2) K/uL Immature Gran # (Auto) (0.00-0.02) K/uL Absolute Nucleated RBC (0-0) K/uL Nucleated RBC % (auto) % Blood Smear Review PT (9.0-12.0) Seconds INR (0.9-1.1) POC pH (7.35-7.45) POC pCO2 (35-46) mmHg POC pO2 (80-95) mmHg POC HCO3 (19-24) monique/L POC Base Excess (-9-1.8) monique/L POC ABG O2 Sat (90-95) % POC Sodium (135-144) mmol/L Sodium (136-145) mmol/L POC Potassium (3.3-5.0) mmol/L Potassium (3.5-5.1) mmol/L POC Chloride (101-112) mmol/L Chloride (98-107) mmol/L Carbon Dioxide (21-32) mmol/L POC Total CO2 (24-31) mmol/L Anion Gap (3-11) POC Anion Gap (16-25) mmol/L POC BUN (7-18) mg/dl BUN (7-18) mg/dl Creatinine (0.6-1.2) mg/dl POC Creatinine (0.6-1.3) mg/dl Est Cr Clr Drug Dosing Est GFR ( Amer) Est GFR (Non-Af Amer) BUN/Creatinine Ratio (10-20) Glucose (70-99) mg/dl POC Glucose (other) (70-99) mg/dl Lactate (0.4-2.0) mmol/L Calcium (8.5-10.1) mg/dl POC Ioniz Calcium Roni (1.12-1.32) mmol/l Magnesium (1.8-2.4) mg/dl Total Bilirubin (0.2-1) mg/dl AST (15-37) U/L ALT (12-78) U/L Alkaline Phosphatase (45-117) U/L Ammonia Troponin I (0-0.045) ng/ml NT-Pro-B Natriuret Pep (0-900) pg/ml Total Protein (6.4-8.2) gm/dl Albumin (3.4-5.0) gm/dl Globulin (2.5-4.0) gm/dl Albumin/Globulin Ratio (0.9-2) Lipase (73-393) U/L Procalcitonin (0-0.5) ng/ml TSH (0.300-4.500) uIu/ml Free T4 (0.8-1.6) ng/dl Specimen Hemolysis Urine Color Urine Appearance (Clear) Urine pH (4.5-7.5) Ur Specific [place] (1.000-1.030) Urine Protein (Negative) Urine Glucose (UA) (Negative) Urine Ketones (Negative) Urine Blood (Negative) Urine Nitrite (Negative) Urine Bilirubin (Negative) Urine Urobilinogen (Negative) Ur Leukocyte Esterase (Negative) Urine WBC (Auto) (0-5) /hpf Urine RBC (Auto) (0-4) /hpf U Hyaline Cast (Auto) (0-5) /lpf U Epithel Cells (Auto) (0-5) /lpf Urine Bacteria (Auto) (Negative) Urine Yeast Salicylates Cancelled Urine Opiates Screen Neg (Neg) Ur Methadone, Qual Neg (Neg) Acetaminophen Cancelled Urine Barbiturates Neg (Neg) Ur Phencyclidine (PCP) Neg (Neg) U Amphetamin/Meth Scrn Neg (Neg) MDMA (Ecstasy) Screen Neg (Neg) U Benzodiazepines Scrn Neg (Neg) Ur Cocaine Metabolite Neg (Neg) U Marijuana (THC) Screen Neg (Neg) Adenovirus (PCR) (NotDetected) B. pertussis DNA (PCR) (NotDetected) B.parapertussis DNA PCR (NotDetected) C. pneumoniae DNA (PCR) (NotDetected) Coronavirus OC43 (PCR) (NotDetected) Coronavirus HKU1 (PCR) (NotDetected) Coronavirus 229E (PCR) (NotDetected) COVID-19 Eval Order Dup asRespPanOrdered COVID-19 PCR (NotDetected) Coronavirus NL63 (PCR) (NotDetected) Human Metapneumovir PCR (NotDetected) Influenza Type A (PCR) (NotDetected) Influenza Type B (PCR) (NotDetected) M. pneumoniae (PCR) (NotDetected) Parainfluenza 1 (PCR) (NotDetected) Parainfluenza 2 (PCR) (NotDetected) Parainfluenza 3 (PCR) (NotDetected) Parainfluenza 4 (PCR) (NotDetected) RSV (PCR) (NotDetected) Entero/Rhino (PCR) (NotDetected) SARS-CoV-2, RNA, NAAT (NEGATIVE) 06/11/20 06/11/20 Range/Units 08:45 09:18 WBC (4.8-10.8) K/uL RBC (4.2-5.4) M/uL Hgb (12.0-16.0) g/dL POC Hgb (12.0-16.0) g/dl Hct (37-47) % POC Hct (37-47) % MCV (80-100) fL MCH (25-34) pg MCHC (32-36) g/dL RDW Std Deviation (36.4-46.3) fL RDW Coeff of Carole (11.5-14.5) % Plt Count (130-400) K/uL MPV (7.4-10.4) fL Immature Gran % (Auto) % Neut % (Auto) % Lymph % (Auto) % [place] % (Auto) % Eos % (Auto) % Baso % (Auto) % Neut # (Auto) (1.4-6.5) K/uL Lymph # (Auto) (1.2-3.4) K/uL [place] # (Auto) (0.11-0.59) K/uL Eos # (Auto) (0-0.5) K/uL Baso # (Auto) (0-0.2) K/uL Immature Gran # (Auto) (0.00-0.02) K/uL Absolute Nucleated RBC (0-0) K/uL Nucleated RBC % (auto) % Blood Smear Review PT (9.0-12.0) Seconds INR (0.9-1.1) POC pH (7.35-7.45) POC pCO2 (35-46) mmHg POC pO2 (80-95) mmHg POC HCO3 (19-24) monique/L POC Base Excess (-9-1.8) monique/L POC ABG O2 Sat (90-95) % POC Sodium (135-144) mmol/L Sodium (136-145) mmol/L POC Potassium (3.3-5.0) mmol/L Potassium (3.5-5.1) mmol/L POC Chloride (101-112) mmol/L Chloride (98-107) mmol/L Carbon Dioxide (21-32) mmol/L POC Total CO2 (24-31) mmol/L Anion Gap (3-11) POC Anion Gap (16-25) mmol/L POC BUN (7-18) mg/dl BUN (7-18) mg/dl Creatinine (0.6-1.2) mg/dl POC Creatinine (0.6-1.3) mg/dl Est Cr Clr Drug Dosing Est GFR ( Amer) Est GFR (Non-Af Amer) BUN/Creatinine Ratio (10-20) Glucose (70-99) mg/dl POC Glucose (other) (70-99) mg/dl Lactate (0.4-2.0) mmol/L Calcium (8.5-10.1) mg/dl POC Ioniz Calcium Roni (1.12-1.32) mmol/l Magnesium (1.8-2.4) mg/dl Total Bilirubin (0.2-1) mg/dl AST (15-37) U/L ALT (12-78) U/L Alkaline Phosphatase (45-117) U/L Ammonia 57.9 H Troponin I (0-0.045) ng/ml NT-Pro-B Natriuret Pep (0-900) pg/ml Total Protein (6.4-8.2) gm/dl Albumin (3.4-5.0) gm/dl Globulin (2.5-4.0) gm/dl Albumin/Globulin Ratio (0.9-2) Lipase (73-393) U/L Procalcitonin (0-0.5) ng/ml TSH (0.300-4.500) uIu/ml Free T4 (0.8-1.6) ng/dl Specimen Hemolysis Urine Color Urine Appearance (Clear) Urine pH (4.5-7.5) Ur Specific [place] (1.000-1.030) Urine Protein (Negative) Urine Glucose (UA) (Negative) Urine Ketones (Negative) Urine Blood (Negative) Urine Nitrite (Negative) Urine Bilirubin (Negative) Urine Urobilinogen (Negative) Ur Leukocyte Esterase (Negative) Urine WBC (Auto) (0-5) /hpf Urine RBC (Auto) (0-4) /hpf U Hyaline Cast (Auto) (0-5) /lpf U Epithel Cells (Auto) (0-5) /lpf Urine Bacteria (Auto) (Negative) Urine Yeast Salicylates Urine Opiates Screen (Neg) Ur Methadone, Qual (Neg) Acetaminophen Urine Barbiturates (Neg) Ur Phencyclidine (PCP) (Neg) U Amphetamin/Meth Scrn (Neg) MDMA (Ecstasy) Screen (Neg) U Benzodiazepines Scrn (Neg) Ur Cocaine Metabolite (Neg) U Marijuana (THC) Screen (Neg) Adenovirus (PCR) Not Detected (NotDetected) B. pertussis DNA (PCR) Not Detected (NotDetected) B.parapertussis DNA PCR Not Detected (NotDetected) C. pneumoniae DNA (PCR) Not Detected (NotDetected) Coronavirus OC43 (PCR) Not Detected (NotDetected) Coronavirus HKU1 (PCR) Not Detected (NotDetected) Coronavirus 229E (PCR) Not Detected (NotDetected) COVID-19 Eval Order COVID-19 PCR Not Detected (NotDetected) Coronavirus NL63 (PCR) Not Detected (NotDetected) Human Metapneumovir PCR Not Detected (NotDetected) Influenza Type A (PCR) Not Detected (NotDetected) Influenza Type B (PCR) Not Detected (NotDetected) M. pneumoniae (PCR) Not Detected (NotDetected) Parainfluenza 1 (PCR) Not Detected (NotDetected) Parainfluenza 2 (PCR) Not Detected (NotDetected) Parainfluenza 3 (PCR) Not Detected (NotDetected) Parainfluenza 4 (PCR) Not Detected (NotDetected) RSV (PCR) Not Detected (NotDetected) Entero/Rhino (PCR) Not Detected (NotDetected) SARS-CoV-2, RNA, NAAT (NEGATIVE) Imaging Data Attestation: I personally reviewed and interpreted this imaging study as follows: My Impression: Chest x-raymy impressionthe endotracheal tube is just above the hannah. She has mild increased interstitial markings bilaterally and cardiomegaly Radiologist's Impression: XR chest 1V portable CLINICAL HISTORY: intubation COMPARISON STUDY: No previous studies for comparison. FINDINGS: Left humeral internal fixation is incidentally noted. Patient is rotated. Tip of endotracheal tube is just above the hannah. Tube could be withdrawn 2 cm. There is no pneumothorax or pleural effusion. Cardiomegaly is noted. There is apparent hazy left basilar opacity. There is interstitial thickening. IMPRESSION: 1. Tip of endotracheal tube just above the hannah. The tube could be withdrawn 2 cm. 2. Left basilar opacity which may reflect consolidation or atelectasis. Radiographic follow up is recommended. 3. Mild interstitial thickening. 4. Cardiomegaly. ECG Data Attestation: I personally reviewed and interpreted this ECG as follows: Indication: + altered mental status and + tachycardia Rate (beats per minute): 88 Rhythm: + normal sinus and + v-tach ECG Intervals/blocks: + [place] Type II ECG [place]: + Right axis deviation ECG ST segments: + Nonspecific ST abnormalities ECG Findings: + PVCs Comparison ECG Date: no prior available Additional Comments: EKG #2. It is now regular with a what appears to be P waves that are intermittently conducting. Nonspecific ST abnormalities. EKG #3: Normal sinus rhythm [address] and T wave abnormalities. This looks improved compared to EKG #2 MDM Narrative This patient was brought in by ambulance to . She is been having seizures and apparently V. tach. Upon arrival she did appear to be in V. tach we defibrillated her. We establish an IO in addition to her IV. She was given IV epi as well as IV amiodarone bolus. A CODE BLUE was called she had CPR and we also intubated her and this was done on the first attempt. Her i-STAT labs were initially ran off the IO line and had elevated potassium and we did recheck this with a femoral stick and her potassium is not elevated. Chest x-ray shows some increased interstitial markings and she may have some congestive heart failure. Reviewing her chart, there is no known Covid. The ICU team arrived and Bryce did place a femoral central line. I also consulted cardiology and talked to Dr. Coronado. The patient was loaded with IV amiodarone as well as IV Keppra. Amiodarone was for V. tach and the Keppra was for seizures although seizures may have been from the V. tach. Her blood sugar was normal en route and therefore unlikely causing her seizures. Dr. Coronado recommended starting her on amiodarone drip and they would also see her. CAT scan of her head was unremarkable. She does have an elevated white count of 20 and a fever and was given IV ertapenem and IV vancomycin. She was also given VT Tylenol. She was placed on an IV propofol drip. She was also placed. On amiodarone drip. CAT scan of her head was negative. Chest x-ray shows some congestive heart failure changes possibly. I discussed the case with the hospitalist for admission. They called me back after a while and were concerned that she may need to be transferred rather than stay here due to concern for EEG monitoring. I called and talked to the systems engineering manager Dr. Orozco at [facility]. He said that they did not have beds and recommended we admit her here. He was more concerned about her cardiac status and infection and did not feel she needed continuous EEG. I then called and talked to [facility] and talk to Dr. Victoria in the ICU. She initially accepted the patient with very limited beds but then called back with a lot of questions from the ICU teletypesetter monitor. They were concerned that she needed to stay here and we needed to work-up her from a cardiac standpoint with an echo and further evaluation and did not think she would likely have an intervention there that we cannot do here. They also were less concerned about the continuous EEG monitoring. I talked to the patient's brother Barrett at length. He did ultimately fax me an advanced directive which does say she does not want resuscitation mechanical ventilation is basically a DNR, he agrees with this and says that she has been in and out of hospital multiple times over the last couple weeks and she is incoherent off and on most of the time. I did discuss with him that as she is already intubated and were given her antibiotics and meds for her heart and seizures that if her heart stops we will let her go peacefully and he agrees with this. He also was in agreement with giving her antibiotics and observing her here and if her symptoms get worse they may ultimately decide to withdraw care. Continuous cardiac monitoring: An order was placed in the EMR for continuous cardiac monitoring. Initially the patient was noted to be in V. tach on the monitor with a rate of approximately 180 at the bedside and was shocked. She subsequently was in sinus bradycardia with a second-degree conduction delay and then ultimately was in normal sinus rhythm/sinus tachycardia Impression & Plan V tach, Cardiac arrest, Altered consciousness, Sepsis, Elevated troponin I l evel, Seizure-like activity, Cirrhosis Discharge Plan Visit Data Chief Complaint: Cardiac Assessment Stated Complaint: SEIZURE ED Provider: Ke Fraga Discharge Problem: V tach, Cardiac arrest, Altered consciousness, Sepsis, Elevated troponin I level, Seizure-like activity, Cirrhosis Patient Disposition: Admitted As Inpatient Discharge Instructions Interventions: ED Discharge Assessment Last Done: 06/11/20 11:19 Discharge Problem: Sepsis Qualifiers: Sepsis type: sepsis due to unspecified organism Sepsis acute organ dysfunction status: unspecified Qualified Code(s): A41.9 - Sepsis, unspecified organism Cirrhosis Qualifiers: Hepatic cirrhosis type: unspecified hepatic cirrhosis Ascites presence: without ascites Qualified Code(s): K74.60 - Unspecified cirrhosis of liver
--- NOTE | 2020-06-11 07:13 | XRay Report ---
XR chest 1V portable CLINICAL HISTORY: intubation COMPARISON STUDY: No previous studies for comparison. FINDINGS: Left humeral internal fixation is incidentally noted. Patient is rotated. Tip of endotrache al tube is just above the hannah. Tube could be withdrawn 2 cm. There is no pneumothorax or pleural e ffusion. Cardiomegaly is noted. There is apparent hazy left basilar opacity. There is interstitial th ickening. IMPRESSION: 1. Tip of endotracheal tube just above the hannah. The tube could be withdrawn 2 cm. 2. Left basilar opacity which may reflect consolidation or atelectasis. Radiographic follow up is rec ommended. 3. Mild interstitial thickening. 4. Cardiomegaly. ACT 112: Negative or not required by law. Electronically signed by: Mane Rader M.D. 06/11/2020 7:11 AM
[2020-06-11 07:30] LABS: Hematocrit (blood only) 39.1 % (37-47); Hemoglobin 12.7 g/dL (12.0-16.0); Mean Corpuscular Hgb Conc 32.5 g/dL (32-36); Mean Corpuscular Volume 104.8 fL (80-100); Mean Platelet Volume 11.9 fL (7.4-10.4); Nucleated RBC # (auto) 0.22 K/uL (0-0); Nucleated RBC % (auto) 1.1 %; Platelet Count 159 K/uL (130-400); RDW Standard Deviation 56.9 fL (36.4-46.3); Red Blood Count 3.73 M/uL (4.2-5.4); White Blood Count 20.79 K/uL (4.8-10.8)
[2020-06-11] MEDS ORDERED: AMIODARONE / D5W 360 MG/200 ML BAG IV SCH ×2 (07:30→13:30)
[2020-06-11 07:31] LABS: Appearance Urine Turbid (Clear); Bacteria Urine Automated 4+ (Negative); Bilirubin Urine Negative (Negative); Blood Urine 2+ (Negative); Color Urine Dark Yellow; Epithelial Cell Urine Auto >30 /lpf (0-5); Glucose Urine UA Negative (Negative); Ketones Urine Trace (Negative); Leukocyte Esterase Urine 2+ (Negative); Nitrite Urine Positive (Negative); Protein Urine 1+ (Negative); Specific Gravity Urine 1.024 (1.000-1.030); Urobilinogen Urine Negative (Negative); WBC Urine Automated >30 /hpf (0-5)
[2020-06-11 07:32] LABS: Alanine Aminotransferase 68 U/L (12-78); Albumin Level 2.8 gm/dl (3.4-5.0); Aspartate Aminotransferase 85 U/L (15-37); BUN Creatinine Ratio 4.6 (10-20); Blood Urea Nitrogen 9 mg/dl (7-18); Calcium 8.3 mg/dl (8.5-10.1); Carbon Dioxide 15 mmol/L (21-32); Chloride 112 mmol/L (98-107); Est GFR (African American) 31.2; Est GFR (Non-African American) 26.9; Glucose 152 mg/dl (70-99); Lipase 91 U/L (73-393); Magnesium 2.2 mg/dl (1.8-2.4); Potassium 4.5 mmol/L (3.5-5.1)
[2020-06-11 07:36] LABS: INR 1.5 (0.9-1.1); Prothrombin Time 15.4 Seconds (9.0-12.0)
--- NOTE | 2020-06-11 07:36 | Procedure Note ---
Procedure Note Date of Service June 11, 2020 Note FEMORAL CENTRAL LINE PROCEDURE NOTE: Procedure: Femoral Central Line Placement Attending: Dr. Eric Nichole Provider: MCKAYLA Cee Indication: Central Drug Administration, Poor Venous Access, Multiple Lab Draws Necessary Anesthesia: None Line placed emergently following cardiac arrest during CODE BLUE. A time-out was completed verifying correct patient, procedure, site, positioning, and implants(s) or special equipment if applicable. Patients left groin was cleansed and draped in the typical sterile fashion using Chloraprep. The Femoral Vein and Femoral Artery were identified using ultrasound. Femoral Vein was cannulated under direct ultrasound guidance using an introducer needle on a syringe. Good venous blood return was maintained prior to removal of syringe from introducer needle. Using Seldinger Technique, a guide wire was advanced through the introducer needle without resistance. The introducer needle was removed and guidewire was visualized in femoral vein with ultrasound. A small incision was made in penetrating fashion at the guide wire insertion site utilizing an 11 blade scalpel. The dilator was advanced to the vessel without resistance. The dilator was exchanged for the triple lumen catheter which was advanced into the vessel without resistance. The guide wire was removed intact from the catheter without issue. Claves were placed on each catheter tip with confirmation of good blood flow from each lumen. Each port was easily flushed with sterile saline. The catheter was placed at the hub and sutured in place. BioPatch was applied to the catheter and a sterile Tegaderm dressing was applied over the catheter with careful attention to sterility. Patient tolerated procedure well. No immediate complications were met. Procedural Ultrasound Guidance: Procedure Date: 06/11/2020 Indication: Femoral central line insertion Attending: Dr. Eric Nichole Provider: MCKAYLA Cee Artery AND Vein visualized: Yes Compressible Vein: Yes Guidewire or Short Catheter seen in vein prior to dilation: Yes Line confirmed in Vein with ultrasound: Yes Coding CPT Codes Tubes, Drains, and Vasc Access - Tubes, Drains, and Vasc Access: [id number] Place catheter in vein superior or inferior vena cava ([id number]) Tubes, Drains, and Vasc Access - Tubes, Drains, and Vasc Access: [id number] Ultrasound Guidance For Vascular ([id number]) [facility] [place] Codes (Charges) Tubes, Drains, and Vasc Access Procedure 1: Tubes, Drains, and Vasc Access: [id number] Place catheter in vein superior or inferior vena cava Procedure 2: Tubes, Drains, and Vasc Access: [id number] Ultrasound Guidance For Vascular
[2020-06-11 07:42] LABS: Albumin Globulin Ratio 0.8 (0.9-2); Alkaline Phosphatase 169 U/L (45-117); Bilirubin,Total 1.6 mg/dl (0.2-1); Globulin 3.3 gm/dl (2.5-4.0); NT Pro B Type Natriuretic Pept 1847 pg/ml (0-900); Total Protein 6.1 gm/dl (6.4-8.2)
[2020-06-11 07:48] LABS: Sodium 146 mmol/L (136-145)
[2020-06-11 07:49] LABS: Cast Urine Automated 0 /lpf (0-5)
[2020-06-11 07:56] LABS: T4 Free Thyroxine 1.15 ng/dl (0.8-1.6)
--- NOTE | 2020-06-11 08:00 | CT Scan Report ---
CT head/brain wo con CLINICAL HISTORY: seizure COMPARISON STUDY: No previous studies for comparison. TECHNIQUE: Axial CT of the brain is performed from the vertex to the skull base. IV contrast was not administered for this examination. A dose lowering technique was utilized adhering to the principles of ALARA. CT DOSE: 921.40 mGy.cm FINDINGS: No intra or extra-axial mass lesions are visualized. There is no CT evidence of acute cortical infarc tion. There is no evidence of midline shift. There is no acute hemorrhage. No calvarial fractures ar e visualized. There are patchy white matter hypodensities likely on a small vessel basis. There is prominent CSF at tenuation within the right middle cranial fossa. This could represent focal atrophy or a small arachn oid cyst. There is no evidence of pathologic ventricular dilatation. There is no evidence of acute sinusitis IMPRESSION: No acute intracranial findings ACT 112: Negative or not required by law. Electronically signed by: Kb Taveras M.D. 06/11/2020 7:59 AM
[2020-06-11 08:05] LABS: Basophils # (auto) 0.07 K/uL (0-0.2); Basophils % (auto) 0.3 %; Eosinophils # (auto) 0.39 K/uL (0-0.5); Eosinophils % (auto) 1.9 %; Immature Granulocytes # (auto) 0.68 K/uL (0.00-0.02); Immature Granulocytes % (auto) 3.3 %; Lymphocytes # (auto) 8.85 K/uL (1.2-3.4); Lymphocytes % (auto) 42.6 %; Monocytes # (auto) 0.89 K/uL (0.11-0.59); Monocytes % (auto) 4.3 %; Neutrophils # (auto) 9.91 K/uL (1.4-6.5); Neutrophils % (auto) 47.6 %
[2020-06-11 08:12] LABS: Amphetamines+Metham, Urine Neg (Neg); Barbiturates, Urine Neg (Neg); Benzodiazepine, Urine Neg (Neg); Cocaine, Urine Neg (Neg); MDMA (Ecstacy), Urine Neg (Neg); Methadone, Urine Neg (Neg); Opiate, Urine Neg (Neg); Phencyclidine, Urine Neg (Neg)
[2020-06-11] MEDS ORDERED: ACETAMINOPHEN 650 MG SUPP PR STA (08:12)
[2020-06-11 09:59] LABS: Adenovirus PCR Not Detected (NotDetected); Bordetella parapertussis PCR Not Detected (NotDetected); Bordetella pertussis PCR Not Detected (NotDetected); Chlamydia pneumoniae PCR Not Detected (NotDetected); Coronavirus 229E PCR Not Detected (NotDetected); Coronavirus CoV-2 (COVID19)PCR Not Detected (NotDetected); Coronavirus HKU1 PCR Not Detected (NotDetected); Coronavirus NL63 PCR Not Detected (NotDetected); Coronavirus OC43PCR Not Detected (NotDetected); Human Metapneumovirus PCR Not Detected (NotDetected); Influenza A PCR Not Detected (NotDetected); Influenza B PCR Not Detected (NotDetected); Mycoplasma pneumoniae PCR Not Detected (NotDetected); Parainfluenza Virus 1 PCR Not Detected (NotDetected); Parainfluenza Virus 2 PCR Not Detected (NotDetected); Parainfluenza Virus 3 PCR Not Detected (NotDetected); Parainfluenza Virus 4 PCR Not Detected (NotDetected); Respiratory Syncytial VirusPCR Not Detected (NotDetected); Rhinovirus/Enterovirus PCR Not Detected (NotDetected)
[2020-06-11 11:31] LABS: BUN Creatinine Ratio 5.2 (10-20); Blood Urea Nitrogen 10 mg/dl (7-18); Calcium 9.2 mg/dl (8.5-10.1); Carbon Dioxide 19 mmol/L (21-32); Chloride 115 mmol/L (98-107); Est GFR (African American) 32.3; Est GFR (Non-African American) 27.8; Glucose 128 mg/dl (70-99); Potassium 3.9 mmol/L (3.5-5.1); Sodium 146 mmol/L (136-145)
--- NOTE | 2020-06-11 11:50 | History & Physical Report ---
Date of Service June 11, 2020 Assessment & Plan (1) V-tach: (2) Cardiac arrest: (3) Pulmonary embolism: (4) Right heart failure with reduced right ventricular function: (5) Elevated troponin: (6) Lactic acidosis: (7) Metabolic acidosis: (8) End of life care: This is a 69 year-old female with significant past medical history of chronic hepatitis C with cirrhosis T2DM, HTN, portal hypertension, GERD, CKD stage III, chronic pain syndrome, bipolar disorder, anemia, thrombocytopenia, tobacco use disorder who presents to ED from [facility] secondary to seizure-like activity with V. tach found by EMS. Discussions were held with cardiology and neurology. Neurology recommended meterman EEG monitoring. [place] [facility] [place] [facility] and unsuccessful 2/2 to bed availability. Stat echo was performed to eval heart function which revealed EF 60-65%, RV mod dilated, RV SF mild to mod reduced with severe hypokinesis to akinesis involving the mid RV wall, RV pressure overload. Strong concern for Acute PE. Pt with Cr. 1.86. Repeat labs done revealed troponin elevated to 11, LA improved to 6, Cr at 1.81. Pt with anaphylactic rxn to IVP dye; therefore emergent CTA unable to be obtained. Discussion with Stemmer Machine was held. Seen and evaluated by Resident Mark at bedside. Post intubation code status was obtained and she is a DNR/DNI. Discussion was held with brother who is POA who initially wanted to attempt treatment by ED provider. Further discussion was held with brother with ICU team along with Dr. Hickey. Ultimately it was deemed to terminally extubate pt and initiate comfort measures. terminally extubate pt comfort measures palliative consulted morpine IV 2mg prn sob/pain atropine prn secretions ativan prn for agitation Disposition: admit to med surg Pt was seen and examined in collaboration with Dr. Hickey. Please see addendum Admission and Anticipated Discharge Date Admission Date: June 11, 2020 History of Present Illness Chief Complaint: Seizure like activity with VTACH at outside facility [facility]. Primary Care Provider: Trenton Pereira PA-C This is a 69 year-old female with significant past medical history of chronic hepatitis C with cirrhosis T2DM, HTN, portal hypertension, GERD, CKD stage III, chronic pain syndrome, bipolar disorder, anemia, thrombocytopenia, tobacco use disorder who presents to ED from [facility] secondary to seizure-like activity with V. tach found by EMS. History unobtainable from patient as she is currently intubated in ED. Of significance patient was hospitalized at [facility] secondary to ESBL UTI and metabolic encephalopathy. She was hospitalized 05/22 and discharged on 05/30. There was questionable witnessed seizure-like activity during hospitalization on 05/23 with reported bilateral upper and lower extremity jerking, and rolling of the eyes. When provider would verbally stimulated patient she would open eyes, but otherwise cannot respond. She did have a EEG done the following day which showed generalized polymorphic delta and theta slowing, mild diffuse encephalopathy. She was discharged on 1 g ertapenem daily for 2 weeks. She was transferred to [facility] for acute rehab. According to ED nurse and ED provider approximately 545am patient was found to have seizure-like activity and EMS was summoned. She was found to have episodes of ventricular tachycardia. In ED she did code requiring epinephrine, bicarb and amiodarone. ROSC was achieved and she was intubated. In ED she was found to have leukocytosis, metabolic acidosis, lactic acid 14, troponin1.8. Head CT was negative for acute abnormality. Urinalysis concerning for infection. Covid screen negative. She did require a femoral line placement. Admission was called for ~ 0700. I received sign out ~ 0815. Discussions were held with cardiology and neurology. Neurology recommended [facility] EEG monitoring. Transfer was attempt [place] [facility] [place] [facility] and unsuccessful 2/2 to bed availability Stat echo was performed to eval heart function which revealed EF 60-65%, RV mod dilated, RV SF mild to mod reduced with severe hypokinesis to akinesis involving the mid RV wall, RV pressure overload. Discussion was held with brother who is POA who initially wanted to attempt treatment. Further discussion was held with brother with ICU team along with Dr. Hickey. Ultimately it was deemed to extubate pt and initiate comfort measures. Allergies Allergy/AdvReac Type Severity Reaction Status Date / Time acetaminophen Allergy Hallucinati Verified 06/11/20 07:14 [From Darvocet-N] ng aripiprazole Allergy Unknown Verified 06/11/20 07:12 celecoxib [From Celebrex] Allergy Rash Verified 06/11/20 07:12 ciprofloxacin [From Cipro] Allergy Hives Verified 06/11/20 07:16 clarithromycin [From Biaxin] Allergy Swelling Verified 06/11/20 07:12 of Lip/Tongue/Throat cyclobenzaprine Allergy Muscle Pain Verified 06/11/20 07:16 [From Flexeril] gabapentin Allergy Unknown Verified 06/11/20 07:16 Iodinated Contrast Media Allergy Anaphylaxis Verified 06/11/20 07:14 metaxalone [From Skelaxin] Allergy Difficulty Verified 06/11/20 07:12 Breathing morphine Allergy Hives Verified 06/11/20 07:16 nitrofurantoin Allergy Gastrointestinal Verified 06/11/20 07:16 Upset NSAIDS (Non-Steroidal Allergy Difficulty Verified 06/11/20 07:12 Anti-Inflamma Breathing Penicillins Allergy Anaphylaxis Verified 06/11/20 07:12 propoxyphene Allergy Hallucinati Verified 06/11/20 07:14 [From Darvocet-N] ng shellfish derived Allergy Anaphylaxis Verified 06/11/20 07:12 tetanus immune globulin Allergy Difficulty Verified 06/11/20 07:19 Breathing pregabalin AdvReac Unknown Verified 06/11/20 07:19 Home Medications Medication Instructions Recorded Confirmed Type Bifidobacterium infantis [Align] 4 mg PO DAILY 06/11/20 06/11/20 History albuterol sulfate 2 puff INHALATION QID PRN 06/11/20 06/11/20 History ascorbic acid (vitamin C) 500 mg PO BID 06/11/20 06/11/20 History benztropine 0.5 mg PO BID 06/11/20 06/11/20 History cariprazine [Vraylar] 3 mg PO QAM 06/11/20 06/11/20 History cetirizine 10 mg PO DAILY 06/11/20 06/11/20 History cholecalciferol (vitamin D3) 25 mcg PO QAM 06/11/20 06/11/20 History [Vitamin D3] citalopram 40 mg PO QAM 06/11/20 06/11/20 History docusate sodium 100 mg PO BID 06/11/20 06/11/20 History famotidine 20 mg PO QAM 06/11/20 06/11/20 History ferrous sulfate 325 mg PO BID 06/11/20 06/11/20 History lactulose 45 ml PO TID 06/11/20 06/11/20 History lamotrigine 150 mg PO BID 06/11/20 06/11/20 History melatonin 3 mg PO HS 06/11/20 06/11/20 History montelukast 10 mg PO QPM 06/11/20 06/11/20 History tuguwote-kwp-lzvu-FA-lutein 1 tab PO QAM 06/11/20 06/11/20 History [Centrum Silver Women] nystatin 100,000 unit PO PCHS 06/11/20 06/11/20 History ondansetron 4 mg PO Q6H PRN 06/11/20 06/11/20 History pantoprazole 40 mg PO QAM 06/11/20 06/11/20 History potassium chloride 20 meq PO TID 06/11/20 06/11/20 History rifaximin [Xifaxan] 550 mg PO BID 06/11/20 06/11/20 History selenium 200 mcg PO DAILY 06/11/20 06/11/20 History spironolactone 50 mg PO QAM 06/11/20 06/11/20 History vancomycin 125 mg PO Q6H 06/11/20 06/11/20 History vitamin B complex 1 tab PO DAILY 06/11/20 06/11/20 History zinc sulfate 220 mg PO QAM 06/11/20 06/11/20 History Past Med/Surg History Medical History Anemia Bipolar disorder Chronic hepatitis C with cirrhosis Chronic pain syndrome CKD (chronic kidney disease) stage 3, GFR 30-59 ml/min GERD (gastroesophageal reflux disease) History of ESBL Klebsiella pneumoniae infection HTN (hypertension) Portal hypertension T2DM (type 2 diabetes mellitus) Vulvar cancer, carcinoma Surgical History History of bronchoscopy History of cholecystectomy History of hysterectomy Family History Father Bipolar disorder Parkinson disease Mother COPD (chronic obstructive pulmonary disease) Heart disease Social History (Updated 06/11/20 @ 09:57 by Christin Plaza PA-C) Smoking Status: Unknown if ever smoked Years Smoked: 30; Cigarettes Per Day: 5; Preferred Language: Prydein[place] Communication Ability: Unable Communication Ability Comment: intubated Surveillance Dual Rate Officer Required: No Beliefs That Will Affect Care: None marital status: Current Living Situation: Other Current Living Situation Comment: unable to obtain Review of Systems Review of Systems: All systems reviewed & are unremarkable except as noted in HPI & below Physical Exam Physical Exam: Constitutional: Critically Illl F, intubated, vitals as above, NAD, Head: Normocephalic, Atraumatic Eyes: PERRL, conjunctivae normal, anicteric sclerae ENMT: external ear and nose normal, oropharynx ET tube in place, dried blood noted around tube Neck: trachea midline, no thyromegaly normal visual inspection Respiratory: normal respiratory effort, Rhonchi noted to L lung, otherwise no wheeze, rales, rhonchi. Normal insp/exp effort, no accessory muscle use Cardiovascular: tachycardic, regular rhythm, no murmur, no edema Vessels: no JVD or carotid bruit Chest: normal inspection of chest Abdomen: normal bowel sounds, soft, nontender, bruising to lower 1/3 of abdomen b/l Musculoskeletal: no cyanosis or clubbing, pt with bruising to b/l upper ext Skin: no rashes, warm and dry normal turgor Neurologic: PERRL, EOMI, accommodation nl, no face palsy, no dysarthria CN's II-XI intact bilaterally and moves all extremities Psychiatric: A+Ox3, euthymic affect Lymphatic: no cervical or axillary lymphadenopathy : deferred Results & Data Results & Data ([facility]) Vital Signs (Past 12 Hours) Vital Signs Temp Pulse Pulse Resp BP BP Pulse Ox 06/11/20 11:19 77 26 H 99/49 L 94 06/11/20 11:10 77 26 H 94 06/11/20 11:00 78 23 106/59 L 94 06/11/20 10:24 37.4 C 06/11/20 10:22 37.4 C 78 26 H 97/52 L 93 06/11/20 10:07 79 26 H 99/49 L 93 06/11/20 09:52 79 28 H 96/46 L 93 06/11/20 09:22 84 26 H 113/49 L 94 06/11/20 09:10 85 28 H 113/50 L 92 06/11/20 08:50 87 28 H 116/55 L 92 06/11/20 08:40 89 28 H 125/54 L 92 06/11/20 08:30 91 H 30 H 130/56 L 93 06/11/20 08:20 93 H 30 H 124/60 92 06/11/20 08:11 38.4 C H 06/11/20 08:10 95 H 30 H 135/58 L 93 06/11/20 08:00 85 28 H 110/57 L 93 06/11/20 07:30 110 H 34 H 154/76 H 95 06/11/20 07:23 110 H 95 06/11/20 07:21 111 H 32 H 163/72 H 96 06/11/20 07:10 71 26 H 150/80 H 96 06/11/20 07:00 58 L 26 H 140/54 L 95 06/11/20 06:55 54 L 23 139/53 L 95 06/11/20 06:50 53 L 65 24 124/64 124/64 97 06/11/20 06:49 47 L 15 96/37 L 98 06/11/20 06:47 47 L 37 H 99 06/11/20 06:33 142 H 0 L 52 L Laboratory Results Short CBC 06/11/20 06/11/20 06/11/20 Range/Units 06:55 06:55 11:01 WBC 20.79 H D (4.8-10.8) K/uL Hgb 12.7 (12.0-16.0) g/dL Hct 39.1 (37-47) % Plt Count 159 D (130-400) K/uL Troponin I 1.810 H* 11.400 H* (0-0.045) ng/ml BMP 06/11/20 06/11/20 06:55 11:01 Sodium 146 H D 146 H Potassium 4.5 3.9 Chloride 112 H 115 H Carbon Dioxide 15 L 19 L BUN 9 10 Creatinine 1.86 H D 1.81 H Glucose 152 H 128 H Calcium 8.3 L 9.2 Cardiac Enzymes 06/11/20 06/11/20 Range/Units 06:55 11:01 Troponin I 1.810 H* 11.400 H* (0-0.045) ng/ml Liver Function 06/11/20 Range/Units 06:55 Total Bilirubin 1.6 H (0.2-1) mg/dl AST 85 H (15-37) U/L ALT 68 (12-78) U/L Alkaline Phosphatase 169 H (45-117) U/L Albumin 2.8 L (3.4-5.0) gm/dl Urine 06/11/20 Range/Units 07:00 Urine Color Dark Yellow Urine Appearance Turbid A (Clear) Urine pH 5.0 (4.5-7.5) Ur Specific [place] 1.024 (1.000-1.030) Urine Protein 1+ H (Negative) Urine Glucose (UA) Negative (Negative) Diagnostic Findings HEAD CT: FINDINGS: No intra or extra-axial mass lesions are visualized. There is no CT evidence of acute cortical infarction. There is no evidence of midline shift. There is no acute hemorrhage. No calvarial fractures are visualized. There are patchy white matter hypodensities likely on a small vessel basis. There is prominent CSF attenuation within the right middle cranial fossa. This could represent focal atrophy or a small arachnoid cyst. There is no evidence of pathologic ventricular dilatation. There is no evidence of acute sinusitis IMPRESSION: No acute intracranial findings CXR: IMPRESSION: 1. Tip of endotracheal tube just above the hannah. The tube could be withdrawn 2 cm. 2. Left basilar opacity which may reflect consolidation or atelectasis. Radiographic follow up is recommended. 3. Mild interstitial thickening. 4. Cardiomegaly. Echo: Stat echo was performed to eval heart function which revealed EF 60-65%, RV mod dilated, RV SF mild to mod reduced with severe hypokinesis to akinesis involving the mid RV wall, RV pressure overload Code Status & VTE Plan Code Status DNR/DNI VTE Prophylaxis Plan VTE Prophylaxis will be ordered: No Supervising Physician Co-Signing Physician Notes Patient is a 69-year-old female with multiple comorbidities including cirrhosis secondary to hepatitis C, diabetes mellitus, hypertension, portal hypertension, dementia, CKD, GERD, bipolar disorder, tobacco use disorder, thrombocytopenia and other medical problems presented from rehab facility for evaluation of seizure like activity and was found to be in V. tach by EMS and had respiratory failure resulting in intubation while in ED. Patient was recently discharged from [facility] after being treated for ESBL UTI and metabolic encephalopathy. Please review HPI for complete details of presentation. On review of the chart, patient had cardiac arrest, acute respiratory and metabolic acidosis, acute respiratory failure requiring intubation. She was started on amiodarone drip and was considered to be started on heparin drip for possible PE based on findings suggestive on echocardiogram. Also noted hypotension secondary to sepsis with lactate levels elevated at 14, white count 20 K. NATALI with creatinine levels elevated 1.86, elevated troponins 1.8 likely type II [place], cannot rule out ACS. UA suggestive of UTI. History could not be obtained secondary to intubation. CT head showed no acute intracranial abnormality. Noted hyperammonemia likely secondary to cirrhosis. On exam patient is elderly, ill-appearing, intubated and sedated, normocephalic atraumatic, normal eye inspection, lungs-bilateral air entry, clear to auscultation, S1-S2, tachycardia, no murmur, abdomen soft, nontender,+ multiple bruises noted on abdomen, trace pedal edema, complete neurological exam could not be performed as patient is intubated and sedated. On further discussion with patient's brother who is the POA, given comorbidities, current medical problems and age and also due to poor baseline functional status, patient was transitioned to comfort measures based on patient's brother who is the POA's wishes. Appreciate cardiology, clerk cashier help in formulating the initial care. Will consult palliative care. Currently on comfort measures only. Patient's brother is aware of the patient's condition and understands and agrees with current management. I personally reviewed the record. Patient is interviewed and examined at bedside. Patient's care is coordinated with Christin Plaza PA-C. Please refer to the documentation above for details of patient's presentation and for discussion of other issues.
[2020-06-11] MEDS ORDERED: ONDANSETRON 4 MG OD TAB SL PRN (12:21)
[2020-06-11] MEDS ORDERED: LORazepam 0.5 MG/1 ML VIAL IV PRN (12:21)
[2020-06-11] MEDS ORDERED: ONDANSETRON INJ 2 MG/ML 2 ML VIAL IV PRN (12:21)
[2020-06-11] MEDS ORDERED: ICU PROTOCOL FOR HYPERGLYCEMIA PRN (12:21)
[2020-06-11] MEDS ORDERED: ATROPINE SULFATE 1% OP SOLN 2 ML BTL SL PRN (12:21)
[2020-06-11] MEDS ORDERED: MoRPHine SULFATE 2 MG/ML CARP IV PRN (12:21)
[2020-06-11] MEDS ORDERED: LORazepam 0.5 MG TAB PO PRN (12:21)
[2020-06-11] MEDS ORDERED: STAT IV Infusion **Titration per Protocol STA (14:11)
[2020-06-11] MEDS ORDERED: MoRPHine SULF/NSS 250 MG/250 ML BTL IV SCH (14:15)
--- NOTE | 2020-06-11 14:20 | Palliative Care Consultation ---
Date of Consultation June 11, 2020 Assessment & Plan (1) Palliative care encounter: This is a 69 year old female who presented to the ED from [facility] as she was experiencing seizure-like activity and Vtach. Additional PMH includes: chronic hepatitis C with cirrhosis, DM2, portal HTN, GERD, CKD stage III, chronic pain syndrome, bipolar disorder, anemia, thrombocytopenia, and tobacco use disorder. Upon admission, discussions were held with cardiology and neurology and unfortunately a transfer to [facility] [place] [place] [facility] due to bed availibility. She was intubated and after lengthy conversation was held with the patients brother, Barrett, she was extubated to comfort measures. Palliative Care was consulted for symptom management and to confirm goals of care. I met with the patient while she was still in 108. She was in the process of being transferred to room 360. The patient had just been extubated a few minutes prior to me encounter. The patient was administered a dose of Morphine with the extubation. The patient appeared uncomfortable as she was restless and with excessive diaphragmatic breathing. I called her brother to discuss placing her on a Morphine drip, which he was receptive. He expressed she has been through a lot over the past few months and just wants her to be comfortable. He declined an Ipad visit or in person visitation. Life expectancy is likely hours to a day. I discussed the above with the IDT. (2) Cardiac arrest: (3) Seizure-like activity: (4) Chronic hepatitis C with cirrhosis: History of Present Illness Reason for Consultation: Goals of Care/Symptom management Requesting Physician: Christin Plaza PA-C Attending Physician: Kuldip Hickey MD History of Present Illness This is a 69 year old female who presented to the ED from [facility] as she was experiencing seizure-like activity and Vtach. Additional PMH includes: chronic hepatitis C with cirrhosis, DM2, portal HTN, GERD, CKD stage III, chronic pain syndrome, bipolar disorder, anemia, thrombocytopenia, and tobacco use disorder. Upon admission, discussions were held with cardiology and neurology and unfortunately a transfer to [facility] [place] [place] [facility] [place] due to bed availibility. She was intubated and after lengthy conversation was held with the patients brother, Barrett, she was extubated to comfort measures. Palliative Care was consulted for symptom management and to confirm goals of care. Please see A/P for further details. Thank you for involving us with this unfortunate individual. Allergies Allergy/AdvReac Type Severity Reaction Status Date / Time acetaminophen Allergy Hallucinati Verified 06/11/20 07:14 [From Darvocet-N] ng aripiprazole Allergy Unknown Verified 06/11/20 07:12 celecoxib [From Celebrex] Allergy Rash Verified 06/11/20 07:12 ciprofloxacin [From Cipro] Allergy Hives Verified 06/11/20 07:16 clarithromycin [From Biaxin] Allergy Swelling Verified 06/11/20 07:12 of Lip/Tongue/Throat cyclobenzaprine Allergy Muscle Pain Verified 06/11/20 07:16 [From Flexeril] gabapentin Allergy Unknown Verified 06/11/20 07:16 Iodinated Contrast Media Allergy Anaphylaxis Verified 06/11/20 07:14 metaxalone [From Skelaxin] Allergy Difficulty Verified 06/11/20 07:12 Breathing morphine Allergy Hives Verified 06/11/20 07:16 nitrofurantoin Allergy Gastrointestinal Verified 06/11/20 07:16 Upset NSAIDS (Non-Steroidal Allergy Difficulty Verified 06/11/20 07:12 Anti-Inflamma Breathing Penicillins Allergy Anaphylaxis Verified 06/11/20 07:12 propoxyphene Allergy Hallucinati Verified 06/11/20 07:14 [From Darvocet-N] ng shellfish derived Allergy Anaphylaxis Verified 06/11/20 07:12 tetanus immune globulin Allergy Difficulty Verified 06/11/20 07:19 Breathing pregabalin AdvReac Unknown Verified 06/11/20 07:19 Home Medications Medication Instructions Recorded Confirmed Type Bifidobacterium infantis [Align] 4 mg PO DAILY 06/11/20 06/11/20 History albuterol sulfate 2 puff INHALATION QID PRN 06/11/20 06/11/20 History ascorbic acid (vitamin C) 500 mg PO BID 06/11/20 06/11/20 History benztropine 0.5 mg PO BID 06/11/20 06/11/20 History cariprazine [Vraylar] 3 mg PO QAM 06/11/20 06/11/20 History cetirizine 10 mg PO DAILY 06/11/20 06/11/20 History cholecalciferol (vitamin D3) 25 mcg PO QAM 06/11/20 06/11/20 History [Vitamin D3] citalopram 40 mg PO QAM 06/11/20 06/11/20 History docusate sodium 100 mg PO BID 06/11/20 06/11/20 History famotidine 20 mg PO QAM 06/11/20 06/11/20 History ferrous sulfate 325 mg PO BID 06/11/20 06/11/20 History lactulose 45 ml PO TID 06/11/20 06/11/20 History lamotrigine 150 mg PO BID 06/11/20 06/11/20 History melatonin 3 mg PO HS 06/11/20 06/11/20 History montelukast 10 mg PO QPM 06/11/20 06/11/20 History tpqjayps-wmk-moco-FA-lutein 1 tab PO QAM 06/11/20 06/11/20 History [Centrum Silver Women] nystatin 100,000 unit PO PCHS 06/11/20 06/11/20 History ondansetron 4 mg PO Q6H PRN 06/11/20 06/11/20 History pantoprazole 40 mg PO QAM 06/11/20 06/11/20 History potassium chloride 20 meq PO TID 06/11/20 06/11/20 History rifaximin [Xifaxan] 550 mg PO BID 06/11/20 06/11/20 History selenium 200 mcg PO DAILY 06/11/20 06/11/20 History spironolactone 50 mg PO QAM 06/11/20 06/11/20 History vancomycin 125 mg PO Q6H 06/11/20 06/11/20 History vitamin B complex 1 tab PO DAILY 06/11/20 06/11/20 History zinc sulfate 220 mg PO QAM 06/11/20 06/11/20 History Patient History Medical History (Updated 06/11/20 @ 16:49 by MCKAYLA Kumar) Anemia Bipolar disorder Chronic hepatitis C with cirrhosis Chronic pain syndrome CKD (chronic kidney disease) stage 3, GFR 30-59 ml/min GERD (gastroesophageal reflux disease) History of ESBL Klebsiella pneumoniae infection HTN (hypertension) Palliative care encounter Portal hypertension T2DM (type 2 diabetes mellitus) Vulvar cancer, carcinoma Surgical History History of bronchoscopy History of cholecystectomy History of hysterectomy Family History Father Bipolar disorder Parkinson disease Mother COPD (chronic obstructive pulmonary disease) Heart disease Social History Smoking Status: Unknown if ever smoked Years Smoked: 30; Cigarettes Per Day: 5; Preferred Language: Romansh Communication Ability: Unable Communication Ability Comment: intubated Medical And Scientific Illustrator Required: No Beliefs That Will Affect Care: None marital status: Current Living Situation: Other Current Living Situation Comment: unable to obtain Assistive Devices: Oxygen - Continuous Review of Systems Review of Systems: Unobtainable due to reduced consciousness Physical Exam Constitutional: + acute distress and + in distress Respiratory: + respiratory distress and + labored breathing Auscultation: + rales Cardiovascular: Rate/Rhythm: + tachycardic Extremities: + edema Gastrointestinal (Abdomen): normal bowel sounds, soft, nontender, no hepatosplenomegaly Skin: no rashes, warm and dry Psychiatric: Insight: + impaired insight Judgement: + impaired judgement Results & Data ([facility]) Vital Signs (Past 12 Hours) Vital Signs Temp Pulse Pulse Resp BP BP Pulse Ox 06/11/20 12:23 36.8 C 72 18 89/44 L 94 06/11/20 11:49 76 27 H 92 06/11/20 11:19 77 26 H 99/49 L 94 06/11/20 11:10 77 26 H 94 06/11/20 11:00 78 23 106/59 L 94 06/11/20 10:24 37.4 C 06/11/20 10:22 37.4 C 78 26 H 97/52 L 93 06/11/20 10:07 79 26 H 99/49 L 93 06/11/20 09:52 79 28 H 96/46 L 93 06/11/20 09:22 84 26 H 113/49 L 94 06/11/20 09:10 85 28 H 113/50 L 92 06/11/20 08:50 87 28 H 116/55 L 92 06/11/20 08:40 89 28 H 125/54 L 92 06/11/20 08:30 91 H 30 H 130/56 L 93 06/11/20 08:20 93 H 30 H 124/60 92 06/11/20 08:11 38.4 C H 06/11/20 08:10 95 H 30 H 135/58 L 93 06/11/20 08:00 85 28 H 110/57 L 93 06/11/20 07:30 110 H 34 H 154/76 H 95 06/11/20 07:23 110 H 95 06/11/20 07:21 111 H 32 H 163/72 H 96 06/11/20 07:10 71 26 H 150/80 H 96 06/11/20 07:00 58 L 26 H 140/54 L 95 06/11/20 06:55 54 L 23 139/53 L 95 06/11/20 06:50 53 L 65 24 124/64 124/64 97 06/11/20 06:49 47 L 15 96/37 L 98 06/11/20 06:47 47 L 37 H 99 06/11/20 06:33 142 H 0 L 52 L PG Care Time/CCT Total # of Minutes Spent Total Time Spent with Patient: Total time spent is greater than 50% in coordination of care (as documented) at patient's floor/unit and/or counseling patient: 100 Coding Level of Care Code 52714 Inpt Consult Level 4 Diagnoses Palliative care encounter Z51.5 Cardiac arrest I46.9 Seizure-like activity R56.9 Chronic hepatitis C with cirrhosis B18.2; K74.60 Time Spent (min) 100 Time Spent Midlevel Total time spent 100 minutes with >50% of that time spent assessing the patient, discussing goals of care and symptom management with the patients brother, and collaborating with IDT
--- NOTE | 2020-06-11 17:40 | Discharge Summary ---
Date of Service June 11, 2020 Admission HPI Per Admitting Provider This is a 69 year-old female with significant past medical history of chronic hepatitis C with cirrhosis T2DM, HTN, portal hypertension, GERD, CKD stage III, chronic pain syndrome, bipolar disorder, anemia, thrombocytopenia, tobacco use disorder who presents to ED from [facility] secondary to seizure-like activity with V. tach found by EMS. History unobtainable from patient as she is currently intubated in ED. Of significance patient was hospitalized at [facility] secondary to ESBL UTI and metabolic encephalopathy. She was hospitalized 05/22 and discharged on 05/30. There was questionable witnessed seizure-like activity during hospitalization on 05/23 with reported bilateral upper and lower extremity jerking, and rolling of the eyes. When provider would verbally stimulated patient she would open eyes, but otherwise cannot respond. She did have a EEG done the following day which showed generalized polymorphic delta and theta slowing, mild diffuse encephalopathy. She was discharged on 1 g ertapenem daily for 2 weeks. She was transferred to [facility] for acute rehab. According to ED nurse and ED provider approximately 545am patient was found to have seizure-like activity and EMS was summoned. She was found to have episodes of ventricular tachycardia. In ED she did code requiring epinephrine, bicarb and amiodarone. ROSC was achieved and she was intubated. In ED she was found to have leukocytosis, metabolic acidosis, lactic acid 14, troponin1.8. Head CT was negative for acute abnormality. Urinalysis concerning for infection. Covid screen negative. She did require a femoral line placement. Admission was called for ~ 0700. I received sign out ~ 0815. Discussions were held with cardiology and neurology. Neurology recommended fpc EEG monitoring. Transfer was attempt [place] [facility] [facility] and unsuccessful 2/2 to bed availability Stat echo was performed to eval heart function which revealed EF 60-65%, RV mod dilated, RV SF mild to mod reduced with severe hypokinesis to akinesis involving the mid RV wall, RV pressure overload. Discussion was held with brother who is POA who initially wanted to attempt treatment. Further discussion was held with brother with ICU team along with Dr. Hickey. Ultimately it was deemed to extubate pt and initiate comfort measures. Admission Exam Per Admitting Provider Constitutional: Critically Illl F, intubated, vitals as above, NAD, Head: Normocephalic, Atraumatic Eyes: PERRL, conjunctivae normal, anicteric sclerae ENMT: external ear and nose normal, oropharynx ET tube in place, dried blood noted around tube Neck: trachea midline, no thyromegaly normal visual inspection Respiratory: normal respiratory effort, Rhonchi noted to L lung, otherwise no wheeze, rales, rhonchi. Normal insp/exp effort, no accessory muscle use Cardiovascular: tachycardic, regular rhythm, no murmur, no edema Vessels: no JVD or carotid bruit Chest: normal inspection of chest Abdomen: normal bowel sounds, soft, nontender, bruising to lower 1/3 of abdomen b/l Musculoskeletal: no cyanosis or clubbing, pt with bruising to b/l upper ext Skin: no rashes, warm and dry normal turgor Neurologic: PERRL, EOMI, accommodation nl, no face palsy, no dysarthria CN's II-XI intact bilaterally and moves all extremities Psychiatric: A+Ox3, euthymic affect Lymphatic: no cervical or axillary lymphadenopathy : deferred Principal Diagnosis Ventricular tachycardia Cardiac arrest Possible pulmonary embolism Acute respiratory failure Sepsis Acute metabolic acidosis Hyperammonemia Acute kidney injury Possible UTI Seizure-like activity Discharge Data Allergies Allergy/AdvReac Type Severity Reaction Status Date / Time acetaminophen Allergy Hallucinati Verified 06/11/20 07:14 [From Darvocet-N] ng aripiprazole Allergy Unknown Verified 06/11/20 07:12 celecoxib [From Celebrex] Allergy Rash Verified 06/11/20 07:12 ciprofloxacin [From Cipro] Allergy Hives Verified 06/11/20 07:16 clarithromycin [From Biaxin] Allergy Swelling Verified 06/11/20 07:12 of Lip/Tongue/Throat cyclobenzaprine Allergy Muscle Pain Verified 06/11/20 07:16 [From Flexeril] gabapentin Allergy Unknown Verified 06/11/20 07:16 Iodinated Contrast Media Allergy Anaphylaxis Verified 06/11/20 07:14 metaxalone [From Skelaxin] Allergy Difficulty Verified 06/11/20 07:12 Breathing morphine Allergy Hives Verified 06/11/20 07:16 nitrofurantoin Allergy Gastrointestinal Verified 06/11/20 07:16 Upset NSAIDS (Non-Steroidal Allergy Difficulty Verified 06/11/20 07:12 Anti-Inflamma Breathing Penicillins Allergy Anaphylaxis Verified 06/11/20 07:12 propoxyphene Allergy Hallucinati Verified 06/11/20 07:14 [From Raheel] ng shellfish derived Allergy Anaphylaxis Verified 06/11/20 07:12 tetanus immune globulin Allergy Difficulty Verified 06/11/20 07:19 Breathing pregabalin AdvReac Unknown Verified 06/11/20 07:19 Consultations 06/11/20 07:57 ED Decision to Admit Stat 06/11/20 11:38 Consult Case Management - Discharge Planning Routine 06/11/20 12:21 Consult Case Management - Discharge Planning Routine Consult Palliative Care Routine Procedures Performed CT head: No acute intracranial findings CXR 1. Tip of endotracheal tube just above the hannah. The tube could be withdrawn 2 cm. 2. Left basilar opacity which may reflect consolidation or atelectasis. Radiographic follow up is recommended. 3. Mild interstitial thickening. 4. Cardiomegaly. Ordered Studies 06/11/20 07:04 CT head/brain wo con Stat Hospital Course (1) V-tach: (2) Cardiac arrest: (3) Pulmonary embolism: (4) Right heart failure with reduced right ventricular function: (5) Elevated troponin: (6) Lactic acidosis: (7) Metabolic acidosis: (8) End of life care: This is a 69 year-old female with significant past medical history of chronic hepatitis C with cirrhosis T2DM, HTN, portal hypertension, GERD, CKD stage III, chronic pain syndrome, bipolar disorder, anemia, thrombocytopenia, tobacco use disorder who presents to ED from [facility] secondary to seizure-like activity with V. tach found by EMS. Discussions were held with cardiology and neurology. Neurology recommended fpc EEG monitoring. Transfer was attempted to [facility] or [facility] and unsuccessful 2/2 to bed availability. Stat echo was performed to eval heart function which revealed EF 60-65%, RV mod dilated, RV SF mild to mod reduced with severe hypokinesis to akinesis involving the mid RV wall, RV pressure overload. Strong concern for Acute PE. Pt with Cr. 1.86. Repeat labs done revealed troponin elevated to 11, LA improved to 6, Cr at 1.81. Pt with anaphylactic rxn to IVP dye; therefore emergent CTA unable to be obtained. Discussion with Logistics Officer was held. Seen and evaluated by Resident Flores at bedside. Post intubation code status was obtained and she is a DNR/DNI. Discussion was held with brother who is POA who initially wanted to attempt treatment by ED provider. Further discussion was held with brother with ICU team along with Dr. Hickey. Ultimately it was deemed to terminally extubate pt and initiate comfort measures. terminally extubate pt comfort measures palliative consulted morpine IV 2mg prn sob/pain atropine prn secretions ativan prn for agitation Disposition: admit to med surg Pt was seen and examined in collaboration with Dr. Hickey. Please see addendum Patient is a 69-year-old female with multiple comorbidities including cirrhosis secondary to hepatitis C, diabetes mellitus, hypertension, portal hypertension, dementia, CKD, GERD, bipolar disorder, tobacco use disorder, thrombocytopenia and other medical problems presented from rehab facility for evaluation of seizure like activity and was found to be in V. tach by EMS and had respiratory failure resulting in intubation while in ED. Patient was recently discharged from [facility] after being treated for ESBL UTI and metabolic encephalopathy. Please review HPI for complete details of presentation. On review of the chart, patient had cardiac arrest, acute respiratory and metabolic acidosis, acute respiratory failure requiring intubation. She was started on amiodarone drip and was considered to be started on heparin drip for possible PE based on findings suggestive on echocardiogram. Also noted hypotension s econdary to sepsis with lactate levels elevated at 14, white count 20 K. NATALI with creatinine levels elevated 1.86, elevated troponins 1.8 likely type II WI, cannot rule out ACS. UA suggestive of UTI. History could not be obtained secondary to intubation. CT head showed no acute intracranial abnormality. Noted hyperammonemia likely secondary to cirrhosis. On exam patient is elderly, ill-appearing, intubated and sedated, normocephalic atraumatic, normal eye inspection, lungs-bilateral air entry, clear to auscultation, S1-S2, tachycardia, no murmur, abdomen soft, nontender,+ multiple bruises noted on abdomen, trace pedal edema, complete neurological exam could not be performed as patient is intubated and sedated. On further discussion with patient's brother who is the POA, given comorbidities, current medical problems and age and also due to poor baseline functional status, patient was transitioned to comfort measures based on patient's brother who is the POA's wishes. Appreciate cardiology, application integration engineer help in formulating the initial care. Will consult palliative care. Currently on comfort measures only. Patient's brother is aware of the patient's condition and understands and agrees with current management. I personally reviewed the record. Patient is interviewed and examined at bedside. Patient's care is coordinated with Christin Plaza PA-C. Please refer to the documentation above for details of patient's presentation and for discussion of other issues. Palliative care was involved in patient's care. Patient at 5:30 PM. While on comfort measures. Updated patient's family. Total Time Total Time Spent Total Time Spent (In Minutes): 25 minutes Total Time Includes: Examination of the Patient, Discharge Planning, Medication Reconciliation, Communication With Other Providers and Other Discharge Plan Discharge Items Patient Disposition: Discharge Diagnosis: Ventricular tachycardia Cardiac arrest Possible pulmonary embolism Acute respiratory failure Sepsis Acute metabolic acidosis Hyperammonemia Acute kidney injury Possible UTI Seizure-like activity Addtl Attending Provider Instructions: Updated patient's family.
[2020-06-11] MEDS ORDERED: ETOMIDATE 2 MG/ML 20 ML VIAL IV ONE (18:49)
[2020-06-11] MEDS ORDERED: SODIUM BICARB 8.4% INJ 50 MEQ/50 ML SYR IV ONE (18:49)
[2020-06-11] MEDS ORDERED: CALCIUM CHLORIDE 10% 10 ML SYR IV ONE (18:49)
[2020-06-11] MEDS ORDERED: AMIODARONE HCL INJ 50 MG/ML 3 ML VIAL IV ONE (18:49)
--- NOTE | 2020-06-12 05:50 | Electrocardiogram Report ---
Test Reason : Blood Pressure : / mmHG Vent. Rate : 088 BPM Atrial Rate : 000 BPM P-R Int : 000 ms QRS Dur : 104 ms QT Int : 332 ms P-R-T Axes : 000 113 171 degrees QTc Int : 401 ms Sinus tachycardia with A-V dissociation with ventricular escape complexes and PVCs Right axis deviation Low voltage QRS Cannot rule out Anteroseptal infarct , age undetermined Abnormal ECG No previous ECGs available Confirmed by Prasanth Kaur ([id number]) on 06/12/2020 5:49:38 AM Referred By: Confirmed By:Prasanth Kaur
--- NOTE | 2020-06-12 05:54 | Electrocardiogram Report ---
Test Reason : Blood Pressure : / mmHG Vent. Rate : 051 BPM Atrial Rate : 054 BPM P-R Int : 000 ms QRS Dur : 134 ms QT Int : 474 ms P-R-T Axes : 000 -61 079 degrees QTc Int : 436 ms Sinus bradycardia with A-V dissociation with junctional escape rhythm Right bundle branch block Left anterior fascicular block Bifascicular block Left ventricular hypertrophy with repolarization abnormality Possible Anterolateral infarct , age undetermined Cannot rule out Inferior infarct Abnormal ECG When compared with ECG of 11-JUN-2020 06:43, Premature ventricular complexes are no longer Present Confirmed by Prasanth Kaur ([id number]) on 06/12/2020 5:53:40 AM Referred By: Confirmed By:Prasanth Kaur
--- NOTE | 2020-06-12 05:58 | Electrocardiogram Report ---
Test Reason : Blood Pressure : / mmHG Vent. Rate : 094 BPM Atrial Rate : 094 BPM P-R Int : 140 ms QRS Dur : 092 ms QT Int : 374 ms P-R-T Axes : 068 -14 006 degrees QTc Int : 467 ms Normal sinus rhythm Minimal voltage criteria for LVH, may be normal variant Nonspecific ST and T wave abnormality Possible Inferior infarct Abnormal ECG When compared with ECG of 11-JUN-2020 06:45, Sinus rhythm is no longer with AV dissociation Vent. rate has increased BY 43 BPM Confirmed by Prasanth Kaur ([id number]) on 06/12/2020 5:58:13 AM Referred By: REFERRED SELF Confirmed By:Prasanth Kaur
== END 2020-06-11 18:50 | disposition expired | DRG 871 ==
LOC: ED 06:31 → 1E 10:33 → 3W 13:08